=== PATIENT | female | born 1935 | race Caucasian/White ===

== ENCOUNTER 2020-04-01 10:00 | Inpatient (IN) | payer MEDICARE, SELFPAY ==
[2020-04-01] VITALS (8 sets, daily range): BP systolic 135–150; BP diastolic 57–74; PULSE 85–110; RESP 18–414; TEMP 36.4–37.1; O2SAT 91–98; BMI 29.4
--- NOTE | 2020-04-01 10:04 | ECG_ITS ---
Test Reason : UPPER BACK PAIN Blood Pressure : / mmHG Vent. Rate : 090 BPM Atrial Rate : 090 BPM P-R Int : 190 ms QRS Dur : 082 ms QT Int : 368 ms P-R-T Axes : 041 -17 -55 degrees QTc Int : 450 ms Normal sinus rhythm Marked ST abnormality, possible inferior subendocardial injury Marked ST abnormality, possible anterolateral subendocardial injury Abnormal ECG When compared with ECG of 13-JUN-2004 08:30, ST now depressed in Inferior leads ST now depressed in Lateral leads T wave inversion now evident in Lateral leads Referred By: Generic ED Physician Electronically Signed By:PAIGE PERRY MD
--- NOTE | 2020-04-01 11:01 | XR_ITS ---
EXAMINATION: XR CHEST CLINICAL INFORMATION: Chest pain COMPARISON: None TECHNIQUE: Frontal view of the chest was obtained. FINDINGS: Heart size upper limits of normal. Ill-defined patchy airspace disease changes are present most prominently in the lower lobes. The pulmonary vasculature appears unremarkable and there is no evidence of gross CHF. No pleural effusions are seen. Degenerative changes are present in the spine with scoliosis convex to the right. XR/XR chest 1V IMPRESSION: Bilateral patchy airspace disease. Unfortunately, no prior studies are available for comparison. Findings would certainly be compatible with viral pneumonia, such as Covid 19. If old films are available, these would be useful for comparison.
[2020-04-01] MEDS: Aspirin 81 MG TAB.CHEW 324 MG PO (11:17)
[2020-04-01] MEDS: 0.9 % Sodium Chloride 1,000 ML 999 ML IV (11:18)
[2020-04-01] MEDS: Nitroglycerin 0.4 MG TAB.SUBL SUBLINGUAL ×2 (11:19→12:13)
[2020-04-01 11:20] LABS: Basophils Percent Auto 0.1 % (0-2); Eosinophils Percent Auto 0.1 % (0-4); Hematocrit 32.7 % (37-47); Hemoglobin 10.5 g/dl (12.0-16.0); Imm Gran Abs Auto 0.03 X10*3/uL (0.00-0.03); Imm Gran Pct Auto 0.4 % (0.0-0.4); Lymphocytes Absolute Auto 0.9 X10*3/uL (1.2-4.9); MANUAL DIFF FLAG NO; Mean Corpuscular HGB Conc 32.1 g/dl (31.0-35.0); Mean Corpuscular Hemoglobin 34.5 pg (27.0-33.0); Mean Corpuscular Volume 107.6 fL (80-98); Mean Platelet Volume 10.7 fL (9.4-12.3); Monocytes Absolute Auto 0.6 X10*3/uL (0.1-1.2); Monocytes Percent Auto 8.2 % (2-11); Neutrophils Absolute Auto 5.2 X10*3/uL (2.0-8.3); Neutrophils Percent Auto 77.2 % (45-73); Platelet Count 180 X10*3/uL (160-400); Red Blood Count 3.04 X10*6/uL (4.20-5.50); White Blood Count 6.7 X10*3/uL (4.8-10.8)
[2020-04-01 11:26] LABS: INTERNATIONAL NORM RATIO 0.9 (0.9-1.1); Prothrombin Time 10.9 SEC (10.8-13.0)
[2020-04-01 11:29] LABS: D Dimer 438 NG/ML; Partial Thromboplastin Time 27.5 SEC (24.1-38.0)
--- NOTE | 2020-04-01 11:30 | ECG_ITS ---
Test Reason : REPEAT Blood Pressure : / mmHG Vent. Rate : 086 BPM Atrial Rate : 086 BPM P-R Int : 190 ms QRS Dur : 082 ms QT Int : 370 ms P-R-T Axes : 040 -23 235 degrees QTc Int : 442 ms Normal sinus rhythm Marked ST abnormality, possible inferior subendocardial injury Abnormal ECG When compared with ECG of 01-APR-2020 10:14, ST less depressed in Anterior leads Referred By: Jono Ramirez Electronically Signed By:PAIGE PERRY MD
--- NOTE | 2020-04-01 11:38 | ED_ITS ---
HPI - General Adult General Chief complaint: Back Pain/Injury Stated complaint: back pain Time Seen by Provider: 04/01/20 10:48 Source: patient Mode of arrival: ambulatory Limitations: no limitations History of Present Illness HPI narrative: 85-year-old female who presents the emergency department for evaluation back pain and bilateral arm pain. She states that the pain started yesterday morning while she was at rest. The pain came on gradually. She states the pain is heaviness located between her shoulder blades. She also has a numb sensation in both arms and pain in her jaw and neck associated with the b ack pain. She states that the pain was intermittent on and off throughout the day yesterday. She states the pain was as high as 10/10. She states this morning when she woke up at 0530 hours she again developed the pain in her back and both arms. The pain did radiate to her neck and jaw as well. She states the pain has been intermittent but can not characterize how long the pain lasts. She states the pain got worse and was 9 of 10 therefore she came to the emergency department for evaluation. She denied fever, chills, nausea, vomiting, lightheadedness, dizziness, diaphoresis, cough, pain or swelling in her extremities. The patient denies coronary artery disease. She does have history of hypertension hyperlipidemia. She also has rheumatoid arthritis and is treated with Remicade. She does smoke cigarettes. Related Data Home Medications Medication Instructions Recorded Confirmed Calcium 600 1 tab PO DAILY 04/01/20 04/01/20 alendronate 70 mg PO QWEEK 04/01/20 04/01/20 amlodipine 1 tab PO DAILY 04/01/20 04/01/20 celecoxib 1 cap PO BID 04/01/20 04/01/20 folic acid 800 mcg PO DAILY 04/01/20 04/01/20 methotrexate 10 mg PO QWEEK 04/01/20 04/01/20 metoprolol succinate 1 tab PO DAILY 04/01/20 04/01/20 multivitamin 1 tab PO DAILY 04/01/20 04/01/20 omeprazole 1 cap PO BID 04/01/20 04/01/20 pravastatin 1 tab PO DAILY 04/01/20 04/01/20 Allergies Allergy/AdvReac Type Severity Reaction Status Date / Time Sulfa (Sulfonamide Allergy Unknown RASH Unverified 12/23/19 16:01 Antibiotics) [SULFA(SULFONAMIDE ANTIBIOTICS)] Review of Systems Review of Systems: Yes all other systems are reviewed and are negative Constitutional: Constitutional: Reports as per HPI Eyes: Eyes: Reports as per HPI ENT: Reports as per HPI Cardiovascular: Cardiovascular: Reports as per HPI Respiratory: Respiratory: Reports as per HPI Gastrointestinal: Gastrointestinal: Reports as per HPI Genitourinary: Genitourinary: Reports as per HPI Musculoskeletal: Musculoskeletal: Reports as per HPI Integumentary/Breasts: Skin/Breast: Reports as per HPI Neurologic: Reports as per HPI and Reports Abnormal speech present Psychiatric: Psychiatric: Reports as per HPI Allergic/Immunologic: Allergic/Immunologic: Reports as per HPI FORMERLY [facility], [facility] Past Medical History Attestation statement: The following information was validated with the patient. [facility]LY [facility], [facility] Narrative: Hypertension, hyperlipidemia, GERD, rheumatoid arthritis on Remicade the patient does smoke cigarettes, she denies alcohol and drug use. She states that she is a and lives alone. Medical History (Updated 04/01/20 @ 17:42 by Jono Ramirez MD) Acid reflux Hyperlipidemia Hypertension Rheumatoid arthritis Surgical History (Updated 04/01/20 @ 17:08 by DULCE Amezquita) Status post bilateral knee replacements Social History Social History (Updated 04/01/20 @ 17:10 by DULCE Amezquita) Household Members: None Alcohol intake: never Smoking Status: Never smoker Use of substances other than those prescribed or required for medical reasons: No Advance Directives: No Advance Directives Information Provided: Yes Physical Exam Vital Signs: Vital Signs: Last Vital Signs Temp 97.8 F 04/01/20 16:19 Pulse 97 04/01/20 16:19 Resp 20 04/01/20 16:19 BP 138/57 L 04/01/20 16:19 Pulse Ox 91 L 04/01/20 16:19 Body Mass Index 29.4 Const: General: cooperative and healthy appearing Nutritional Appearance: average body habitus Orientation/consciousness: oriented to person and oriented to place Limitations: no limitations HENMT: Head: Yes normal to inspection, Yes normocephalic and Yes atraumatic Ears: external ears normal General nose exam: Normal external nose present Face and sinus: Yes normal facial exam Mouth: Normal oral and palatal mucosa present Throat: Yes posterior oropharynx normal Eyes: General: appearance normal, both eyes and all related structures Alignment and Position: alignment normal Periorbital: periorbital findings normal Eyelids: Yes eyelids normal Conjunctivae: conjunctivae normal Sclerae: sclerae normal Pupils: Equal, round and reactive pupils present Direct Ophthalmoscopy: normal light reflex Neck: Neck: Yes normal visual inspection and Yes supple Thyroid: Thyroid normal Chest: Chest palpation & inspection: normal inspection of the chest and normal palpation of entire chest wall Resp: Effort & Inspection: normal respiratory effort and able to speak in complete sentences Auscultation: clear to auscultation bilaterally, no crackles, no rales and no rhonchi Cardio: Rate: regular rate Rhythm: regular rhythm Heart sounds: S1 normal heart sound present, S2 normal heart sound present and no murmurs GI: Inspection: Yes normal to inspection Palpation (GI): Soft to palpation, nontender and no guarding Auscultation: normal bowel sounds : General: Yes no CVA tenderness Back/Spine/Pelvis: Back: no CVA tenderness Cervical Spine: normal cervical lordosis Thoracic/Lumbar Spine: thoracic and lumbar spine normal to inspection Skin: General skin exam: no rashes or lesions noted Lesions: no lesions Rashes: no rashes Trauma: no lacerations or abrasions Neuro: General: oriented to person and oriented to place Cranial nerves: Yes CN's II-XII intact bilaterally and Yes Equal, round and reactive pupils present Cognition (Neuro): normal cognition Speech: Abnormal speech present Motor exam (neuro): 5/5 motor strength present throughout Extrem: General: Yes normal to inspection Psych: Appearance: grossly normal and well kempt Mental Status: mental status grossly normal Speech and movement: Normal speech and movement present Affect: normal affect Attitude: cooperative Thought process: Normal thought process present Thought content: Normal thought content present Insight: Good insight present (Psych) Judgement: Good judgement present (Psych) Course Course Course Narrative: 85-year-old female who presents emergency department for evaluation of intermittent back pain x2 days, the pain is located between her shoulder blades with pain radiating to both arms, neck and jaw. On presentation the patient was having pain was 9/10. Her EKG which was done in the waiting room, revealed ST segment depression in leads 2, AVF, V4 through V6. Upon seeing this EKG and a request that the patient brought back to a room immediately. The patient was given 1 sublingual nitroglycerin at 11:31 a.m. with complete resolution of her pain. I did order a cardiac workup on this patient to include troponin and a D-dimer. The patient will have a repeat EKG. 1241: The patient's chest x-ray is concerning for increased interstitial infiltrates which I believe is more consistent with pulmonary edema versus pneumonia. The patient's D-dimer was elevated at 430 but is within a normal range for an age adjusted value. The patient's troponin was elevated at 24.2 given the gender specific range for women of 5-17. The patient became more hypoxic and more dyspneic. She was ordered to get BiPAP and I did discuss the patient's presentation with the covering wood planer, Dr. Ej Martinez. He recommended the patient giving the patient morphine for her dyspnea and I ordered 2 mg IV and he recommended consult cardiology. 1326: The patient was evaluated by Dr. Martinez who felt that the patient did not require BiPAP therefore it was discontinued. He wanted the patient to be treated with a DuoNeb to see if this improved her dyspnea. He recommended patient be admitted to the hospitalist service. Patient's proBNP was elevated at 1097. 1524: Patient's 3 hour troponin was elevated at 340 suggesting that the patient has myocardial injury. COVID-19 test was negative. 1616: CT angiogram of the chest revealed no aortic dissection or large pulmon sebas embolism. The patient does have a ground-glass appearance to the lungs more consistent with congestive heart failure given her negative COVID-19 screen. I will started on low-dose heparin, the patient and the patient will be admitted to the hospital service. Medical Decision Making Lab Data Result diagrams: 04/01/20 11:12 04/01/20 11:12 Labs: Lab Results 04/01/20 04/01/20 04/01/20 Range/Units 11:12 11:12 11:12 WBC 6.7 (4.8-10.8) X10*3/uL RBC 3.04 L (4.20-5.50) X10*6/uL Hgb 10.5 L (12.0-16.0) g/dl Hct 32.7 L (37-47) % MCV 107.6 H (80-98) fL MCH 34.5 H (27.0-33.0) pg MCHC 32.1 (31.0-35.0) g/dl RDW 14.0 (11.0-16.0) % Plt Count 180 (160-400) X10*3/uL MPV 10.7 (9.4-12.3) fL Immature Gran % (Auto) 0.4 (0.0-0.4) % Neut % (Auto) 77.2 H (45-73) % Lymph % (Auto) 14.0 L (20-40) % [place] % (Auto) 8.2 (2-11) % Eos % (Auto) 0.1 (0-4) % Baso % (Auto) 0.1 (0-2) % Lymph # (Auto) 0.9 L (1.2-4.9) X10*3/uL [place] # (Auto) 0.6 (0.1-1.2) X10*3/uL Eos # (Auto) 0.0 (0.0-0.4) X10*3/uL Baso # (Auto) 0.0 (0.0-0.2) X10*3/uL Abs Immat Gran (auto) 0.03 (0.00-0.03) X10*3/uL Absolute Neuts (auto) 5.2 (2.0-8.3) X10*3/uL Absolute Nucleated RBC 0.000 (0.0-0.012) X10*3/uL Nucleated RBC % (auto) 0.0 (0.0-0.2) /100WBC PT (10.8-13.0) SEC INR (0.9-1.1) APTT (24.1-38.0) SEC D-Dimer NG/ML Sodium 137 (135-145) mmol/L Potassium 4.4 (3.3-5.1) mmol/l Chloride 106 (96-108) mmol/L Carbon Dioxide 19 L (22-29) mmol/L Anion Gap 16 (12-20) BUN 26 H (9-16) mg/dL Creatinine 1.23 (0.5-1.4) mg/dL Estim Creat Clear Calc 27.4 Estimated GFR 42 Random Glucose 126 H (60-115) mg/dL Calcium 9.0 (8.4-10.2) mg/dL Total Bilirubin 0.5 (0.0-1.0) mg/dL Direct Bilirubin 0.2 (0.0-0.5) mg/dL AST 21 (5-31) U/L ALT 14 (0-31) U/L Alkaline Phosphatase 48 (39-117) U/L Troponin I High Sens (<3.5-17.0) ng/L B-Natriuretic Peptide (<100) pg/mL Total Protein 7.1 (6.5-8.0) g/dL Albumin 4.4 (3.5-5.0) g/dL Lipase 21 (8-78) U/L COVID-19 (TETO) (Negative) COVID-19 Clin Com 04/01/20 04/01/20 04/01/20 Range/Units 11:12 11:12 12:35 WBC (4.8-10.8) X10*3/uL RBC (4.20-5.50) X10*6/uL Hgb (12.0-16.0) g/dl Hct (37-47) % MCV (80-98) fL MCH (27.0-33.0) pg MCHC (31.0-35.0) g/dl RDW (11.0-16.0) % Plt Count (160-400) X10*3/uL MPV (9.4-12.3) fL Immature Gran % (Auto) (0.0-0.4) % Neut % (Auto) (45-73) % Lymph % (Auto) (20-40) % [place] % (Auto) (2-11) % Eos % (Auto) (0-4) % Baso % (Auto) (0-2) % Lymph # (Auto) (1.2-4.9) X10*3/uL [place] # (Auto) (0.1-1.2) X10*3/uL Eos # (Auto) (0.0-0.4) X10*3/uL Baso # (Auto) (0.0-0.2) X10*3/uL Abs Immat Gran (auto) (0.00-0.03) X10*3/uL Absolute Neuts (auto) (2.0-8.3) X10*3/uL Absolute Nucleated RBC (0.0-0.012) X10*3/uL Nucleated RBC % (auto) (0.0-0.2) /100WBC PT 10.9 (10.8-13.0) SEC INR 0.9 (0.9-1.1) APTT 27.5 (24.1-38.0) SEC D-Dimer 438 NG/ML Sodium (135-145) mmol/L Potassium (3.3-5.1) mmol/l Chloride (96-108) mmol/L Carbon Dioxide (22-29) mmol/L Anion Gap (12-20) BUN (9-16) mg/dL Creatinine (0.5-1.4) mg/dL Estim Creat Clear Calc Estimated GFR Random Glucose (60-115) mg/dL Calcium (8.4-10.2) mg/dL Total Bilirubin (0.0-1.0) mg/dL Direct Bilirubin (0.0-0.5) mg/dL AST (5-31) U/L ALT (0-31) U/L Alkaline Phosphatase (39-117) U/L Troponin I High Sens 24.2 H (<3.5-17.0) ng/L B-Natriuretic Peptide 1097 H (<100) pg/mL Total Protein (6.5-8.0) g/dL Albumin (3.5-5.0) g/dL Lipase (8-78) U/L COVID-19 (TETO) Negative (Negative) COVID-19 Clin Com See Note 04/01/20 Range/Units 14:25 WBC (4.8-10.8) X10*3/uL RBC (4.20-5.50) X10*6/uL Hgb (12.0-16.0) g/dl Hct (37-47) % MCV (80-98) fL MCH (27.0-33.0) pg MCHC (31.0-35.0) g/dl RDW (11.0-16.0) % Plt Count (160-400) X10*3/uL MPV (9.4-12.3) fL Immature Gran % (Auto) (0.0-0.4) % Neut % (Auto) (45-73) % Lymph % (Auto) (20-40) % [place] % (Auto) (2-11) % Eos % (Auto) (0-4) % Baso % (Auto) (0-2) % Lymph # (Auto) (1.2-4.9) X10*3/uL [place] # (Auto) (0.1-1.2) X10*3/uL Eos # (Auto) (0.0-0.4) X10*3/uL Baso # (Auto) (0.0-0.2) X10*3/uL Abs Immat Gran (auto) (0.00-0.03) X10*3/uL Absolute Neuts (auto) (2.0-8.3) X10*3/uL Absolute Nucleated RBC (0.0-0.012) X10*3/uL Nucleated RBC % (auto) (0.0-0.2) /100WBC PT (10.8-13.0) SEC INR (0.9-1.1) APTT (24.1-38.0) SEC D-Dimer NG/ML Sodium (135-145) mmol/L Potassium (3.3-5.1) mmol/l Chloride (96-108) mmol/L Carbon Dioxide (22-29) mmol/L Anion Gap (12-20) BUN (9-16) mg/dL Creatinine (0.5-1.4) mg/dL Estim Creat Clear Calc Estimated GFR Random Glucose (60-115) mg/dL Calcium (8.4-10.2) mg/dL Total Bilirubin (0.0-1.0) mg/dL Direct Bilirubin (0.0-0.5) mg/dL AST (5-31) U/L ALT (0-31) U/L Alkaline Phosphatase (39-117) U/L Troponin I High Sens 340.9 H D (<3.5-17.0) ng/L B-Natriuretic Peptide (<100) pg/mL Total Protein (6.5-8.0) g/dL Albumin (3.5-5.0) g/dL Lipase (8-78) U/L COVID-19 (TETO) (Negative) COVID-19 Clin Com ECG Data Attestation: I personally reviewed and interpreted this ECG as follows: Interpretation: Normal sinus rhythm rate of 90, normal AK, QRS and QTC intervals, ST segment depression in leads 2, AVF, V4 through V6, no old EKG for comparison. This is consistent with acute anterior ischemia Critical Care Time Critical Care Time Critical Care Time: Yes Total Critical Care Time: 55 Attestation: Critical Care: The patient was critically ill with a high probability of imminent or life threatening deterioration. I spent greater than 30 minutes of discontinuous time evaluating the patient,delivering critical care at the bedside, discussing and evaluating pertinent data with consultants (hospitalist, lobster man and wood planer). Critical care time does not include time spent performing separately billable procedures or teaching. Total time spent performing critical care was 55 minutes. Discharge Plan Discharge Clinical Impression: Myocardial injury, Congestive heart failure, Acute respiratory distress Prescriptions: No Action multivitamin Tablet 1 tab PO DAILY RF: 0 celecoxib 200 mg capsule 1 cap PO BID RF: 0 pravastatin 40 mg tablet 1 tab PO DAILY RF: 0 alendronate 70 mg Tablet 70 mg PO QWEEK RF: 0 metoprolol succinate 100 mg tablet extended release 24 hr 1 tab PO DAILY RF: 0 amlodipine 10 mg tablet 1 tab PO DAILY RF: 0 omeprazole 20 mg capsule,delayed release(DR/EC) 1 cap PO BID RF: 0 folic acid 800 mcg Tablet 800 mcg PO DAILY RF: 0 methotrexate 2.5 mg/mL Solution 10 mg PO QWEEK RF: 0 Calcium 600 1 tab PO DAILY RF: 0
[2020-04-01 11:50] LABS: Anion Gap 16 (12-20); Blood Urea Nitrogen 26 mg/dL (9-16); Carbon Dioxide 19 mmol/L (22-29); Chloride 106 mmol/L (96-108); Creatinine Clr Calc Pharmacy 27.4; Estimated Glomerular Filt Rate 42; Glucose Random 126 mg/dL (60-115); Potassium 4.4 mmol/l (3.3-5.1); Sodium 137 mmol/L (135-145)
[2020-04-01 11:53] LABS: Alanine Aminotransferase 14 U/L (0-31); Albumin Level 4.4 g/dL (3.5-5.0); Alkaline Phosphatase 48 U/L (39-117); Aspartate Amino Transferase 21 U/L (5-31); Bilirubin Direct 0.2 mg/dL (0.0-0.5); Bilirubin Total 0.5 mg/dL (0.0-1.0); Lipase 21 U/L (8-78); Total Protein 7.1 g/dL (6.5-8.0)
[2020-04-01] MEDS: Nitroglycerin 2 % Oint 1 GM Packet 1 INCH TRANSDERMA (12:13)
[2020-04-01] MEDS: Furosemide 20 MG/2 ML VIAL IVPUSH ×2 (12:14→13:10)
[2020-04-01 12:26] LABS: Troponin-I High Sensitivity 24.2 ng/L (<3.5-17.0)
[2020-04-01 13:01] LABS: COVID-19 Test Negative (Negative)
[2020-04-01 13:01] LABS: B Type Natriuretic Peptide 1097 pg/mL (<100)
[2020-04-01] MEDS: Morphine Sulfate 4 MG/ML CARTRIDGE 2 MG IVPUSH (13:10)
[2020-04-01] MEDS: Albuterol/Iprat 2.5/0.5MG 3 ML AMPUL.NEB INHALE (13:29)
--- NOTE | 2020-04-01 13:40 | P.EN_ITS ---
Event Note Date of Service: 04/01/20 Event Note: I was asked by Dr. Ramirez to look at Mrs. Yap who was put on BiPAP bec of dyspnea and hypoxemia. Briefly, the patient is an 85-year-old female with PMHx of hypertension, hyperlipidemia, and rheumatoid arthritis on Remicade.. She?s a current smoker. She has no h/o CAD. Baseline creat in her old chart was about 1.0 in 2018. She presented to the ED this morn c/o back pain and bilateral arm pain. The hx as obtained by Dr. Ramirez: ?She states that the pain started yesterday morning while she was at rest. The pain came on gradually. She states the pain is heaviness located between her shoulder blades. She also has a numb sensation in both arms and pain in her jaw and neck associated with the back pain. She states that the pain was intermittent on and off throughout the day yesterday. She states the pain was as high as 10/10. She states this morning when she woke up at 0530 hours she again developed the pain in her back and both arms. The pain did radiate to her neck and jaw as well. She states the pain has been intermittent but can not characterize how long the pain lasts. She states the pain got worse and was 9 of 10 therefore she came to the emergency department for evaluation. She denied fever, chills, nausea, vomiting, lightheadedness, dizziness, diaphoresis, cough, pain or swelling in her extremities.? First VS in the ED report HR 85, BP 139/61, RR 26, Sat 92% on NC, ? flow rate. Exam reported as ?Effort & Inspection: normal respiratory effort and able to speak in complete sentences Auscultation: clear to auscultation bilaterally, no crackles, no rales and no rhonchi?. ?EKG revealed ST segment depression in leads 2, AVF, V4 through V6.? The patient was given 1 sublingual nitroglycerin at 11:31 a.m. with complete resolution of her pain. CXR shows increased interstitial infiltrates concerning for mild pulmonary edema. The patient's D-dimer was elevated at 430 (normal for age). Troponin was 24. BNP 1097. She became more hypoxic and more dyspneic. She was put on BiPAP and I was called. I rev her chart and rec?d morphine and a cardiology consult and went to the ED and saw the patient. She was given morphine 2mg and Lasix 20mg. On my exam, she is wearing the BiPAP, she?s breathing easy, and looks entirely well. She?s talking easily in full sentences. She says that she doesn?t like the mask, feels that she?d breathe easier without it. RR about 18-20, Vt on BiPAP 10/5 was 395cc. Sat low 90?s, no JVD, good chest excursion. Auscultation shows some crackles with a low pitched exp wheeze. No M or G. No leg edema. IMPRESSION: 1. Chest pain, EKG changes, and pain resolved with NTG. Sounds like ACS. Definitely rec a cardiology consult. Would repeat trop and EKG. But the back pain in a smoker with no reason to have back pain makes me concerned about an aortic aneurysm. D/W Dr. Ramirez. 2. Hypoxemia. Agree with likely CHF. Tx w Lasix and morphine. Give more morphine if nec. Needs an echo at some point (sooner rather than later). No indication at this time for noninvasive mask ventilation. If her breathing becomes more labored and she needs support, would start with more morphine and high flow. 3. Acute or chronic kidney disease. 4. Anemia. Discussed all the above with Dr. Ramirez. Rec admission to [facility] (assuming that cardiology doesn?t think she needs an intervention). Time: 40 min ([id number])
--- NOTE | 2020-04-01 13:59 | PC.NURSE ---
UP TO BEDSIDE COMMODE VOID 500ML PT REQUIRES SUPERVISION ONLY FOR TRANSFER
--- NOTE | 2020-04-01 14:01 | CT_ITS ---
EXAMINATION: CT ANGIOGRAM OF THE CHEST WITH AND WITHOUT CONTRAST (CT PULMONARY ANGIOGRAM FOR PE) CLINICAL INFORMATION: Chest pain, back pain, elevated D-dimer. Rule out dissection. COMPARISON: No pertinent prior studies are available for comparison. TECHNIQUE: Prior to contrast administration, noncontrast localization images were obtained. Subsequently, multidetector volumetric imaging was performed from the thoracic inlet to the pubic symphysis through the chest, abdomen, and pelvis following the administration of 70 mL Omnipaque 350 intravenous contrast. No contrast reaction reported. Sagittal, coronal, and MIP oblique sagittal (through the chest only) reformatted images were obtained on the CT workstation, uploaded to PACS, and reviewed. This CT examination was performed using dose optimization techniques as appropriate, variously including the following: *Automated exposure control *Adjustment of mA and/or kV according to patient size (this includes techniques or standardized protocols for targeted exams where dose is matched to indication/reason for exam; i.e. extremities or head) *Use of iterative reconstruction technique Total exam dose-length product: 273 mGy-cm FINDINGS: QUALITY OF STUDY/CONTRAST BOLUS: The bolus is less than than optimal. There are significant limitations secondary to motion artifact. PULMONARY ARTERIES: No large central or segmental pulmonary emboli. This study is limited by the contrast bolus and respiratory motion artifact. THORACIC AORTA: No aneurysm or dissection. LUNGS AND PLEURA: Septal thickening is present with ground-glass change in the lungs with some thickening along the bronchovascular bundles. There are associated bilateral pleural effusions and bilateral lower lobe atelectasis. Findings could be related to interstitial edema or possibly infectious etiologies. MEDIASTINUM: Normal heart size. No pericardial effusion. No hilar or mediastinal lymphadenopathy. No evidence of septal bowing or right heart strain. CHEST WALL/AXILLAE: No axillary or internal mammary lymphadenopathy. OSSEOUS STRUCTURES: Marked degenerative change is present in the spine with scoliosis and mid thoracic compression fractures. VISUALIZED ABDOMEN: No significant findings in the upper abdomen. CT/CT angio chest IMPRESSION: 1. No evidence of large central or segmental pulmonary emboli. 2. No evidence of aortic dissection or aneurysm. 3. Ground-glass changes in the pulmonary parenchyma with some septal thickening and bilateral pleural effusions as described above which could be secondary to CHF with interstitial edema or infection. VTE: Negative, but limited
--- NOTE | 2020-04-01 14:04 | PC.NURSE ---
hospitalist sal here for admission assessment
[2020-04-01] MEDS: iohexoL 350 MG/ML 100 ML INFUS..BTL IV (14:54)
[2020-04-01 15:11] LABS: Troponin-I High Sensitivity 340.9 ng/L (<3.5-17.0)
--- NOTE | 2020-04-01 16:34 | PM.EVENT ---
Event Note Date of Service: 04/01/20 Event Note: Patient seen and examined independently and was present during amaral portion of E/M service. Agree with midlevel's history, physical, assessment, and plan. 85F presented with sob ACS complicate by acute chf lasix, heparin, cardio
--- NOTE | 2020-04-01 16:59 | P.HPHOSP_ITS ---
History of Present Illness Date of Service: 04/01/20 Chief Complaint: Back pain This is an 85-year-old female who presents to the emergency department today with complaints of back pain. She reports pain between her shoulder blades radiating to her arms in her jaw. This pain started last night and was present for several hours and then resolved. She began having the same pain again this morning around 530. The pain was described as a 9/10 severity. She came to the emergency department for evaluation and received dose of nitro on arrival. This initially improved her pain somewhat. Her EKG was noted to be abnormal with ST depressions in leads 2, AVF, V4 through V6. Her initial troponin was 24.2 but her repeat increased to 340.9. She became hypoxic while in the emergency department and imaging was consistent with heart failure. Her BNP was 1112. She received a dose of Lasix and morphine with good effect. Cardiology recommended starting her on heparin drip and a decision was made to admit her for further management. Review of Systems Review of Systems: Yes all other systems are reviewed and are negative Constitutional: Constitutional: Denies chills and Denies fever(s) Respiratory: Respiratory: Denies cough Gastrointestinal: Gastrointestinal: Denies abdominal pain Neurologic: Reports as per HPI and Reports Abnormal speech present [facility] Medical History (Updated 04/01/20 @ 17:11 by DULCE Amezquita) Acid reflux Hyperlipidemia Hypertension Rheumatoid arthritis Functional capacity: independent ambulation Family history: reviewed and not pertinent Surgical History (Updated 04/01/20 @ 17:08 by DULCE Amezquita) Status post bilateral knee replacements Social History (Updated 04/01/20 @ 17:10 by DULCE Amezquita) Household Members: None Alcohol intake: never Smoking Status: Never smoker Use of substances other than those prescribed or required for medical reasons: No Advance Directives: No Advance Directives Information Provided: Yes Meds Allergies Allergy/AdvReac Type Severity Reaction Status Date / Time Sulfa (Sulfonamide Allergy Unknown RASH Unverified 12/23/19 16:01 Antibiotics) [SULFA(SULFONAMIDE ANTIBIOTICS)] Home Medications Medication Instructions Recorded Confirmed Type Calcium 600 1 tab PO DAILY 04/01/20 04/01/20 History alendronate 70 mg PO QWEEK 04/01/20 04/01/20 History amlodipine 1 tab PO DAILY 04/01/20 04/01/20 History celecoxib 1 cap PO BID 04/01/20 04/01/20 History folic acid 800 mcg PO DAILY 04/01/20 04/01/20 History methotrexate 10 mg PO QWEEK 04/01/20 04/01/20 History metoprolol succinate 1 tab PO DAILY 04/01/20 04/01/20 History multivitamin 1 tab PO DAILY 04/01/20 04/01/20 History omeprazole 1 cap PO BID 04/01/20 04/01/20 History pravastatin 1 tab PO DAILY 04/01/20 04/01/20 History Physical Exam Vital Signs and Narrative: Vital Signs: Last Vital Signs Temp 97.8 F 04/01/20 16:19 Pulse 97 04/01/20 16:19 Resp 20 04/01/20 16:19 BP 138/57 L 04/01/20 16:19 Pulse Ox 91 L 04/01/20 16:19 Body Mass Index 29.4 Const: General: alert and awake Nutritional Appearance: well nourished Orientation/consciousness: patient oriented x3 HENMT: Head: Yes normocephalic and Yes atraumatic Eyes: Sclerae: sclerae normal Chest: Chest palpation & inspection: normal inspection of the chest Resp: Effort & Inspection: normal respiratory effort Auscultation: crackles Cardio: Rate: regular rate Rhythm: regular rhythm GI: Palpation (GI): Soft to palpation and nontender Skin: General skin exam: no rashes or lesions noted Neuro: General: patient oriented x3 Cranial nerves: Yes CN's II-XII intact bilaterally and Yes Bilaterally intact EOM present Speech: Abnormal speech present Extrem: General: Yes normal to inspection Results Labs CBC and Chem 7: 04/01/20 11:12 04/01/20 11:12 Labs: Laboratory Results - last 24 hr 04/01/20 04/01/20 04/01/20 11:12 11:12 11:12 MCV 107.6 H MCH 34.5 H MCHC 32.1 RDW 14.0 Plt Count 180 MPV 10.7 Immature Gran % (Auto) 0.4 Neut % (Auto) 77.2 H Lymph % (Auto) 14.0 L [place] % (Auto) 8.2 Eos % (Auto) 0.1 Baso % (Auto) 0.1 Lymph # (Auto) 0.9 L [place] # (Auto) 0.6 Eos # (Auto) 0.0 Baso # (Auto) 0.0 Abs Immat Gran (auto) 0.03 Absolute Neuts (auto) 5.2 Absolute Nucleated RBC 0.000 Nucleated RBC % (auto) 0.0 PT INR APTT D-Dimer Anion Gap 16 Estim Creat Clear Calc 27.4 Estimated GFR 42 Random Glucose 126 H Calcium 9.0 Total Bilirubin 0.5 Direct Bilirubin 0.2 AST 21 ALT 14 Alkaline Phosphatase 48 Troponin I High Sens B-Natriuretic Peptide Total Protein 7.1 Albumin 4.4 Lipase 21 COVID-19 (TETO) COVID-19 Clin Com 04/01/20 04/01/20 04/01/20 11:12 11:12 12:35 MCV MCH MCHC RDW Plt Count MPV Immature Gran % (Auto) Neut % (Auto) Lymph % (Auto) [place] % (Auto) Eos % (Auto) Baso % (Auto) Lymph # (Auto) [place] # (Auto) Eos # (Auto) Baso # (Auto) Abs Immat Gran (auto) Absolute Neuts (auto) Absolute Nucleated RBC Nucleated RBC % (auto) PT 10.9 INR 0.9 APTT 27.5 D-Dimer 438 Anion Gap Estim Creat Clear Calc Estimated GFR Random Glucose Calcium Total Bilirubin Direct Bilirubin AST ALT Alkaline Phosphatase Troponin I High Sens 24.2 H B-Natriuretic Peptide 1097 H Total Protein Albumin Lipase COVID-19 (TETO) Negative COVID-[employer] Com See Note 04/01/20 14:25 MCV MCH MCHC RDW Plt Count MPV Immature Gran % (Auto) Neut % (Auto) Lymph % (Auto) [place] % (Auto) Eos % (Auto) Baso % (Auto) Lymph # (Auto) [place] # (Auto) Eos # (Auto) Baso # (Auto) Abs Immat Gran (auto) Absolute Neuts (auto) Absolute Nucleated RBC Nucleated RBC % (auto) PT INR APTT D-Dimer Anion Gap Estim Creat Clear Calc Estimated GFR Random Glucose Calcium Total Bilirubin Direct Bilirubin AST ALT Alkaline Phosphatase Troponin I High Sens 340.9 H D B-Natriuretic Peptide Total Protein Albumin Lipase COVID-19 (TETO) COVID-19 Clin Com Imaging Radiologist's Impressions: Impressions Chest X-Ray 04/01/20 11:01 IMPRESSION: Bilateral patchy airspace disease. Unfortunately, no prior studies are available for comparison. Findings would certainly be compatible with viral pneumonia, such as Covid 19. If old films are available, these would be useful for comparison. Chest CTA 04/01/20 14:01 IMPRESSION: 1. No evidence of large central or segmental pulmonary emboli. 2. No evidence of aortic dissection or aneurysm. 3. Ground-glass changes in the pulmonary parenchyma with some septal thickening and bilateral pleural effusions as described above which could be secondary to CHF with interstitial edema or infection. VTE: Negative, but limited Assessment and Plan (1) NSTEMI (non-ST elevated myocardial infarction): Status: Acute (2) CHF (congestive heart failure): Status: Acute This is an 85-year-old female with a history of hypertension, hyperlipidemia, rheumatoid arthritis who presents to the emergency department with back pain radiating to her arms found to have NSTEMI, CHF Acute respiratory failure with hypoxia Related to CHF -continue supplemental oxygen as needed NSTEMI -IV heparin -echocardiogram -aspirin, continue beta-michael, statin -cardiology consult -repeat troponin Acute CHF No previous history of heart failure -IV Lasix -echocardiogram -cardiology consult -low-sodium diet Hypertension Continue home Norvasc, metoprolol Rheumatoid arthritis Hold methotrexate DVT prophylaxis-heparin Code status-patient wishes to be DNR/DNI This case was discussed with Dr. Morgan
[2020-04-01] MEDS: Heparin Sodium,Porcine/1/2NS 25,000 UNIT/250 ML IV.SOLN 7.66 UNIT IVCONT (17:25)
[2020-04-01] MEDS: Furosemide 40 MG/4 ML VIAL IVPUSH (17:28)
[2020-04-01] MEDS: Heparin Sodium,Porcine 5,000 UNIT/ML VIAL 3700 UNIT IVPUSH (17:28)
--- NOTE | 2020-04-01 20:05 | ECG_ITS ---
Test Reason : ELEVATE TROP Blood Pressure : / mmHG Vent. Rate : 128 BPM Atrial Rate : 108 BPM P-R Int : 000 ms QRS Dur : 072 ms QT Int : 304 ms P-R-T Axes : 000 -22 -75 degrees QTc Int : 443 ms Atrial fibrillation with rapid ventricular response with frequent atrial-paced complexes and with premature ventricular or aberrantly conducted complexes Marked ST abnormality, possible inferior subendocardial injury Abnormal ECG When compared with ECG of 01-APR-2020 11:57, Atrial fibrillation with rapid ventricular response has replaced Sinus rhythm Vent. rate has increased BY 42 BPM Referred By: Patria Doshi Electronically Signed By:PAIGE PERRY MD
[2020-04-01] MEDS: Omeprazole 20 MG CAPSULE.DR PO (21:41)
[2020-04-02 00:09] LABS: PTT Heparin Drip 80.5 SEC (53-77.9)
[2020-04-02 04:00] VITALS: BP 128/88; PULSE 108; RESP 18; TEMP 36.3; O2SAT 92
[2020-04-02] MEDS: Furosemide 40 MG/4 ML VIAL IVPUSH ×2 (04:15→10:53)
[2020-04-02 06:00] VITALS: BMI 29.2
[2020-04-02 06:34] LABS: MANUAL DIFF FLAG NO
[2020-04-02 07:02] LABS: Basophils Percent Auto 0.1 % (0-2); Hematocrit 30.9 % (37-47); Hemoglobin 9.9 g/dl (12.0-16.0); Imm Gran Abs Auto 0.03 X10*3/uL (0.00-0.03); Imm Gran Pct Auto 0.4 % (0.0-0.4); Lymphocytes Absolute Auto 0.9 X10*3/uL (1.2-4.9); Lymphocytes Percent Auto 11.8 % (20-40); Mean Corpuscular Hemoglobin 33.7 pg (27.0-33.0); Mean Corpuscular Volume 105.1 fL (80-98); Mean Platelet Volume 11.7 fL (9.4-12.3); Monocytes Absolute Auto 1.1 X10*3/uL (0.1-1.2); Monocytes Percent Auto 14.2 % (2-11); NRBC Pct Auto 0.3 /100WBC (0.0-0.2); Neutrophils Absolute Auto 5.6 X10*3/uL (2.0-8.3); Neutrophils Percent Auto 73.5 % (45-73); Platelet Count 176 X10*3/uL (160-400); Red Blood Count 2.94 X10*6/uL (4.20-5.50); Red Cell Distribution Width 14.3 % (11.0-16.0); White Blood Count 7.7 X10*3/uL (4.8-10.8)
[2020-04-02 07:10] LABS: PTT Heparin Drip 63.9 SEC (53-77.9)
[2020-04-02 07:24] LABS: B Type Natriuretic Peptide 2531 pg/mL (<100)
[2020-04-02 07:38] LABS: Anion Gap 15 (12-20); Blood Urea Nitrogen 25 mg/dL (9-16); Calcium 8.3 mg/dL (8.4-10.2); Carbon Dioxide 25 mmol/L (22-29); Chloride 103 mmol/L (96-108); Creatinine Clr Calc Pharmacy 26.2; Estimated Glomerular Filt Rate 40; Glucose Random 112 mg/dL (60-115); Potassium 4.4 mmol/l (3.3-5.1); Sodium 139 mmol/L (135-145)
--- NOTE | 2020-04-02 07:41 | PC.NURSE ---
Addendum entered by Belle Crowell RN 04/02/20 10:33: Cardio at bedside - patient c/o of SOB and right arm heaviness, O2 87% on 5.5L NC - patient placed on 100% NRB - O2 up to 97% - VO Dr Hendrix 1 nitro paste and 40mg IVP lasix administered. BP stable 114/73. Jaeger placed. Current vitals: BP 121/55, HR 74, 96% on 100% NRB, 24RR. Plan for [facility] transfer for cardiac cath. Addendum entered by Belle Crowell RN 04/02/20 09:46: Cardio contacted by hospitalist - patient started on Amio loading dose and gtt - loading dose completed and gtt currently at started rate of 1mg/min. Converted to SR w/ frequent PVCs at 908 - Dr Morgan notified. Patient resting with eyes closed in bed. Will continue to monitor. Original Note: HR up to 140's on monitor, rhythm irregular - previously SR w/ frequent PVC's - this Rn at bedside - patient has no complaints except for lower back pain. BP 115/73, O2 92% on 5.5L NC. EKG ordered and obtained reading AFIB w/ RVR, ST abnormality. Dr Morgan notified. Cardio consult pending - currently on heparin gtt - ptthd no change - next ptthd placed for 04/02 1315 per protocol. Patient repositioned for back pain and reports pain improved. Will continue to monitor.
--- NOTE | 2020-04-02 07:45 | ECG_ITS ---
Test Reason : rhythm change Blood Pressure : / mmHG Vent. Rate : 141 BPM Atrial Rate : 122 BPM P-R Int : 000 ms QRS Dur : 072 ms QT Int : 284 ms P-R-T Axes : 000 -11 -73 degrees QTc Int : 434 ms Atrial fibrillation with rapid ventricular response with premature ventricular or aberrantly conducted complexes Marked ST abnormality, possible inferior subendocardial injury Abnormal ECG When compared to the previous EKG of 01 apr 2020, no significant change noted Referred By: Cameron Morgan Electronically Signed By:DINO HICKS
[2020-04-02 07:48] VITALS: BP 115/73; PULSE 140; RESP 20; TEMP 37; O2SAT 92
[2020-04-02] MEDS: Pravastatin Sodium 40 MG TABLET PO (07:59)
[2020-04-02 08:00] VITALS: BP 115/73; PULSE 139
[2020-04-02] MEDS: Aspirin Enteric Coated 81 MG TABLET.DR PO (08:00)
[2020-04-02] MEDS: Metoprolol Succinate ER 100 MG TAB.ER.24H PO (08:00)
[2020-04-02] MEDS: Omeprazole 20 MG CAPSULE.DR PO (08:00)
[2020-04-02] MEDS: 0.9 % Sodium Chloride Flush 3 ML SYRINGE IVFLUSH (08:01)
[2020-04-02] MEDS: Amiodarone/Dextrose 150 MG/100 ML PLAST..BAG 600 MG IV (08:55)
[2020-04-02] MEDS: Amiodarone HCL 900 MG in 0.9 % Sodium Chloride 500 ML 34.53 MG IVCONT (09:05)
--- NOTE | 2020-04-02 10:37 | P.DS_ITS ---
DS: Providers Provider Date of admission: 04/01/20 16:56 Primary care physician: Chandler Rodriguez MD Consults: 04/01/20 16:56 Consult to Cardiology Routine Consulting Provider: Esteban Hendrix Reason for consultation: NSTEMI, CHF Has provider been notified: No DS: Diagnosis Discharge Diagnosis (1) NSTEMI (non-ST elevated myocardial infarction): Status: Acute (2) CHF (congestive heart failure): Status: Acute (3) Acute respiratory distress: Status: Acute (4) Congestive heart failure: Status: Acute (5) Myocardial injury: Status: Acute (6) Acute respiratory failure with hypoxia: Status: Acute DS: Medications Discharge Medications Home Medications: Home Medications Medication Instructions Recorded Confirmed Calcium 600 1 tab PO DAILY 04/01/20 04/01/20 alendronate 70 mg PO QWEEK 04/01/20 04/01/20 amlodipine 1 tab PO DAILY 04/01/20 04/01/20 celecoxib 1 cap PO BID 04/01/20 04/01/20 folic acid 800 mcg PO DAILY 04/01/20 04/01/20 methotrexate 10 mg PO QWEEK 04/01/20 04/01/20 metoprolol succinate 1 tab PO DAILY 04/01/20 04/01/20 multivitamin 1 tab PO DAILY 04/01/20 04/01/20 omeprazole 1 cap PO BID 04/01/20 04/01/20 pravastatin 1 tab PO DAILY 04/01/20 04/01/20 DS: Summary Hospital Course Hospital Course: Patient was admitted for NSTEMI complicated by acute CHF and acute hypoxic respiratory failure. She was started on IV heparin, aspirin, beta-michael. Patient then went into atrial fibrillation with rapid ventricular response. She was started on amiodarone drip and converted to sinus rhythm. Patient then went into flash pulmonary edema requiring 100% non-rebreather. Decision was made to transfer to CICU at [facility]. Time Spent with Patient Time attestation: Total time spent providing and/or coordinating discharge services: Physical Exam Vital Signs: Vital Signs: Last Vital Signs Temp 98.6 F 04/02/20 07:48 Pulse 139 H 04/02/20 08:00 Resp 20 04/02/20 07:48 BP 115/73 04/02/20 08:00 Pulse Ox 92 04/02/20 07:48 Body Mass Index 29.2 General: AO X 3, some resipratory distress - but actually says shes feeling a bit better Resp: rales CVS: S1,S2,RRR GI: soft, non tender, non distended Neuro: motor grossly intact Psych: appropriate affect DS: Data Data Completed and Pending Labs on day of discharge: 04/01/20 10:04 ECG 12 lead EKG Stat 04/01/20 10:05 EKG Documentation DIRECTED 04/01/20 11:00 Aspirin 324 mg PO ONCE ONE 04/01/20 11:01 IV insert/maintain ONCE XR chest 1V Stat 04/01/20 11:06 0.9 % Sodium Chloride [Ns] 1,000 ml IV 999 mls/hr 04/01/20 11:12 B Type Natriuretic Peptide Stat Basic Metabolic Panel Stat Complete Blood Count Auto Diff Stat D Dimer Stat Lipase Stat Liver Panel Stat Partial Thromboplastin Time Stat Prothrombin Time INR Stat Troponin-I High Sensitivity Stat 04/01/20 11:30 ECG 12 lead EKG Stat EKG Documentation DIRECTED 04/01/20 12:05 Furosemide [Lasix] 20 mg IVPUSH ONCE ONE Nitroglycerin 2 % Oint [Nitro-Bid] 1 inch TRANSDERMA ONCE ONE 04/01/20 12:31 Furosemide [Lasix] 20 mg IVPUSH ONCE ONE 04/01/20 12:32 Add Laboratory Test Stat RT BiPAP/CPAP STAT 04/01/20 12:35 COVID-19 ID NOW ([place]) Stat 04/01/20 12:45 Morphine Sulfate 2 mg IVPUSH ONCE ONE 04/01/20 13:24 Albuterol Sulfate [Ventolin] 4 puff INHALE ONCE ONE Albuterol/Iprat 2.5/0.5MG 3 ML [Duoneb] 3 ml INHALE ONCE ONE 04/01/20 14:01 CT angio chest Stat 04/01/20 14:25 Troponin-I High Sensitivity Stat 04/01/20 14:53 iohexoL 350 MG/ML [Omnipaque 350 MG/ML] 100 ml IV ONCE ONE 04/01/20 16:30 Heparin Sodium,Porcine 3,700 unit IVPUSH ONCE ONE 04/01/20 16:44 Transfer Order Routine 04/01/20 18:52 Troponin-I High Sensitivity Routine 04/01/20 19:53 IV insert/maintain Q4HR Intake and Output QSHIFTE Vital Signs Q4HR 04/01/20 20:05 ECG 12 lead EKG Stat EKG Documentation DIRECTED 04/01/20 23:44 PTT Heparin Drip Stat 04/02/20 06:20 B Type Natriuretic Peptide Routine Basic Metabolic Panel DAILY@0600 Complete Blood Count Auto Diff DAILY@0600 PTT Heparin Drip Stat 04/02/20 07:41 EKG Documentation DIRECTED 04/02/20 08:37 Amiodarone/Dextrose [Nexterone] 150 mg in 100 ml IV ONCE 04/02/20 08:46 Amiodarone HCL [Cordarone] 900 mg .ROUTE .STK-MED ONE 04/02/20 09:00 amLODIPine Besylate [Norvasc] 10 mg PO DAILY 04/02/20 10:19 Furosemide [Lasix] 40 mg .ROUTE .STK-MED ONE Nitroglycerin 2 % Oint [Nitro-Bid] 1 inch TRANSDERMA .STK-MED ONE 04/02/20 10:32 Nitroglycerin 2 % Oint [Nitro-Bid] 0.5 inch TRANSDERMA ONCE ONE Laboratory Last Values WBC 7.7 X10*3/uL (4.8-10.8) 04/02/20 06:20 RBC 2.94 X10*6/uL (4.20-5.50) L 04/02/20 06:20 Hgb 9.9 g/dl (12.0-16.0) L 04/02/20 06:20 Hct 30.9 % (37-47) L 04/02/20 06:20 MCV 105.1 fL (80-98) H 04/02/20 06:20 MCH 33.7 pg (27.0-33.0) H 04/02/20 06:20 MCHC 32.0 g/dl (31.0-35.0) 04/02/20 06:20 RDW 14.3 % (11.0-16.0) 04/02/20 06:20 Plt Count 176 X10*3/uL (160-400) 04/02/20 06:20 MPV 11.7 fL (9.4-12.3) 04/02/20 06:20 Immature Gran % (Auto) 0.4 % (0.0-0.4) 04/02/20 06:20 Neut % (Auto) 73.5 % (45-73) H 04/02/20 06:20 Lymph % (Auto) 11.8 % (20-40) L 04/02/20 06:20 [place] % (Auto) 14.2 % (2-11) H 04/02/20 06:20 Eos % (Auto) 0.0 % (0-4) 04/02/20 06:20 Baso % (Auto) 0.1 % (0-2) 04/02/20 06:20 Lymph # (Auto) 0.9 X10*3/uL (1.2-4.9) L 04/02/20 06:20 [place] # (Auto) 1.1 X10*3/uL (0.1-1.2) 04/02/20 06:20 Eos # (Auto) 0.0 X10*3/uL (0.0-0.4) 04/02/20 06:20 Baso # (Auto) 0.0 X10*3/uL (0.0-0.2) 04/02/20 06:20 Abs Immat Gran (auto) 0.03 X10*3/uL (0.00-0.03) 04/02/20 06:20 Absolute Neuts (auto) 5.6 X10*3/uL (2.0-8.3) 04/02/20 06:20 Absolute Nucleated RBC 0.020 X10*3/uL (0.0-0.012) H 04/02/20 06:20 Nucleated RBC % (auto) 0.3 /100WBC (0.0-0.2) H 04/02/20 06:20 PT 10.9 SEC (10.8-13.0) 04/01/20 11:12 INR 0.9 (0.9-1.1) 04/01/20 11:12 APTT 27.5 SEC (24.1-38.0) 04/01/20 11:12 PTT (Heparin Protocol) 63.9 SEC (53-77.9) D 04/02/20 06:20 D-Dimer 438 NG/ML 04/01/20 11:12 Sodium 139 mmol/L (135-145) 12/27/20 06:20 Potassium 4.4 mmol/l (3.3-5.1) 04/02/20 06:20 Chloride 103 mmol/L (96-108) 04/02/20 06:20 Carbon Dioxide 25 mmol/L (22-29) 04/02/20 06:20 Anion Gap 15 (12-20) 04/02/20 06:20 BUN 25 mg/dL (9-16) H 04/02/20 06:20 Creatinine 1.28 mg/dL (0.5-1.4) 04/02/20 06:20 Estim Creat Clear Calc 26.2 04/02/20 06:20 Estimated GFR 40 04/02/20 06:20 Random Glucose 112 mg/dL (60-115) 04/02/20 06:20 Calcium 8.3 mg/dL (8.4-10.2) L D 04/02/20 06:20 Total Bilirubin 0.5 mg/dL (0.0-1.0) 04/01/20 11:12 Direct Bilirubin 0.2 mg/dL (0.0-0.5) 04/01/20 11:12 AST 21 U/L (5-31) 04/01/20 11:12 ALT 14 U/L (0-31) 04/01/20 11:12 Alkaline Phosphatase 48 U/L (39-117) 04/01/20 11:12 Troponin I High Sens 2132.3 ng/L (<3.5-17.0) H D 04/01/20 18:52 B-Natriuretic Peptide 2531 pg/mL (<100) H 04/02/20 06:20 Total Protein 7.1 g/dL (6.5-8.0) 04/01/20 11:12 Albumin 4.4 g/dL (3.5-5.0) 04/01/20 11:12 Lipase 21 U/L (8-78) 04/01/20 11:12 COVID-19 (TETO) Negative (Negative) 04/01/20 12:35 COVID-19 Clin Com See Note 04/01/20 12:35 Discharge Plan Discharge Patient Disposition: Xfer Acute Care Hospital Referrals: Chandler Rodriguez MD [Primary Care Provider] - Discharge Medications: Continued multivitamin Tablet 1 tab PO DAILY RF: 0 celecoxib 200 mg capsule 1 cap PO BID RF: 0 pravastatin 40 mg tablet 1 tab PO DAILY RF: 0 alendronate 70 mg Tablet 70 mg PO QWEEK RF: 0 metoprolol succinate 100 mg tablet extended release 24 hr 1 tab PO DAILY RF: 0 amlodipine 10 mg tablet 1 tab PO DAILY RF: 0 omeprazole 20 mg capsule,delayed release(DR/EC) 1 cap PO BID RF: 0 folic acid 800 mcg Tablet 800 mcg PO DAILY RF: 0 methotrexate 2.5 mg/mL Solution 10 mg PO QWEEK RF: 0 Calcium 600 1 tab PO DAILY RF: 0 Discharge Orders: Discharge Order (Routine); Ordered 04/02/20 Ordered By: Cameron Morgan Activity on Discharge: As tolerated Visit Report Forms: Patient Portal Discharge page Care Plan Goals: revascularization Health Concerns: [place], CHF Plan of Treatment[place] [facility] [place]
[2020-04-02] MEDS: Nitroglycerin 2 % Oint 1 GM Packet 1 INCH TRANSDERMA (10:53)
[2020-04-02 11:19] VITALS: PULSE 82; RESP 16; TEMP 36.2
[2020-04-02 11:29] VITALS: BP 98/71
--- NOTE | 2020-04-02 11:41 | PM.CNCAR ---
History of Present Illness History of Present Illness Date of Service: 04/02/20 Requesting physician: Orin Navarro Consult reason: congestive heart failure Chief complaint: Nstemi, CHF Narrative: Thank you for inviting us in consult on Tameka. She is a pleasant 85-year-old woman with prior history of rheumatoid arthritis being on Remicade therapy for last 20 years. She also has history of hypertension hyperlipidemia. No prior cardiac issues. Two days prior to admission she developed bilateral arm discomfort and some interscapular discomfort. She did not seek any emergency care at that time she has symptoms resolved. Subsequently then she started yesterday having significant interscapular discomfort which she does have describes as pressure radiating to both her arms and her jaw. She came to the emergency room on a she got sublingual nitroglycerin her symptoms somewhat resolved EKG showed significant ST T wave changes. Initial troponin is 24.2 and subsequent troponin 340.9. In the emergency room she got hypoxic subsequent findings consistent with acute pulmonary edema. She was given Lasix and morphine with improvement in her symptoms. She has been doing well till this morning her symptoms were better however while I was interviewing her she started getting nauseous and then suddenly got into respiratory distress. When I examined her she noted to be in florid pulmonary edema and look pale. She is not having any bilateral arm discomfort jaw discomfort interscapular discomfort. We started on 100% non-rebreather oxygen given Lasix and nitro paste and her symptoms gradually improved. Her subsequent troponin significantly elevated 2400. She went into rapid atrial fibrillation this morning with this more significant ST T wave changes. He started on amiodarone drip and she converted to sinus rhythm prior to going into flash pulmonary edema. She had no palpitations during this episode. No new neurologic symptoms. No recent systemic symptoms. Review of Systems Constitutional: Constitutional: Denies body ache(s), Denies chills, Denies fever(s), Denies frequent falls, Denies malaise and Denies weakness Eyes: Eyes: Reports no additional eye complaints ENT: Reports system reviewed and no additional complaints, except as documented Cardiovascular: Cardiovascular: Reports chest pain at rest, Denies lightheadedness, Denies Loss of Consciousness, Reports radiating jaw, neck or arm pain, Denies palpitations and Reports dyspnea Respiratory: Respiratory: Reports cough and Reports dyspnea Gastrointestinal: Gastrointestinal: Reports no additional gastrointestinal complaints Genitourinary: Genitourinary: Reports no additional female genitourinary complaints Musculoskeletal: Musculoskeletal: Reports no additional musculoskeletal complaints Neurologic: Reports as per HPI, Reports Abnormal speech present, Denies frequent falls and Denies weakness Psychiatric: Psychiatric: Reports no additional psychiatric complaints Endocrine: Endocrine: Denies palpitations Hematologic/Lymphatic: Hematologic/Lymphatic: Reports no additional hematologic/lymphatic complaints Allergic/Immunologic: Allergic/Immunologic: Reports no additional allergic/immunologic complaints [facility] Past Medical History Medical History Acid reflux Hyperlipidemia Hypertension Rheumatoid arthritis Functional capacity: independent ambulation Family History Family history: reviewed and not pertinent Surgical History Surgical History Status post bilateral knee replacements Social History Social History Household Members: None Housing: House Do you presently have visiting nurse or other home services: No Alcohol intake: never Smoking Status: Never smoker Smoked in Last 30 Days: No Use of substances other than those prescribed or required for medical reasons: No Currently Displaying Signs/Symptoms of Drug Intoxication Withdrawal: No Have you been hit, kicked, punched, or otherwise hurt by someone within the past year? If so, by whom?: No Do you feel safe in your current relationship?: No Current Relationship Is there a partner from a previous relationship who is making you feel unsafe now?: No Are you made to feel afraid or neglected: No Advance Directives: No Advance Directives Information Provided: Yes Do you have thoughts of harming others: None Do you have a plan to hurt others: No Plan Recently lost weight without trying: No Meds Allergies Allergy/AdvReac Type Severity Reaction Status Date / Time Sulfa (Sulfonamide Allergy Unknown RASH Verified 04/01/20 21:15 Antibiotics) [SULFA(SULFONAMIDE ANTIBIOTICS)] Home Medications Medication Instructions Recorded Confirmed Type Calcium 600 1 tab PO DAILY 04/01/20 04/01/20 History alendronate 70 mg PO QWEEK 04/01/20 04/01/20 History amlodipine 1 tab PO DAILY 04/01/20 04/01/20 History celecoxib 1 cap PO BID 04/01/20 04/01/20 History folic acid 800 mcg PO DAILY 04/01/20 04/01/20 History methotrexate 10 mg PO QWEEK 04/01/20 04/01/20 History metoprolol succinate 1 tab PO DAILY 04/01/20 04/01/20 History multivitamin 1 tab PO DAILY 04/01/20 04/01/20 History omeprazole 1 cap PO BID 04/01/20 04/01/20 History pravastatin 1 tab PO DAILY 04/01/20 04/01/20 History Physical Exam Vital Signs: Vital Signs: Last Vital Signs Temp 97.1 F 04/02/20 11:19 Pulse 82 04/02/20 11:19 Resp 16 04/02/20 11:19 BP 98/71 04/02/20 11:29 Pulse Ox 92 04/02/20 07:48 Body Mass Index 29.2 Const: General: alert, awake, acute distress severe and respiratory, anxious and ill appearing Nutritional Appearance: overweight Orientation/consciousness: patient oriented x3 HENMT: Head: Yes normocephalic and Yes atraumatic Eyes: General: appearance normal, both eyes and all related structures Neck: Neck: Yes trachea midline, Yes supple and Yes JVD Chest: Chest palpation & inspection: normal inspection of the chest Resp: Effort & Inspection: Actively coughing, respiratory distress and uses accessory muscles Auscultation: rales bilateral and diffuse Cardio: Jugular venous distension: JVD Rate: regular rate Rhythm: regular rhythm Heart sounds: S1 normal heart sound present, S2 normal heart sound present and Murmur heart sound present systolic GI: Auscultation: normal bowel sounds Skin: General skin exam: no rashes or lesions noted Neuro: General: patient oriented x3 Speech: Abnormal speech present Extrem: General: Yes no clubbing, cyanosis or edema Psych: Appearance: grossly normal Affect: Anxious affect present Results Labs and Meds Result diagrams: 04/02/20 06:20 04/02/20 06:20 Lab results: Laboratory Results - last 24 hr 04/01/20 04/01/20 04/01/20 11:12 11:12 11:12 WBC RBC Hgb Hct MCV MCH MCHC RDW Plt Count MPV Immature Gran % (Auto) Neut % (Auto) Lymph % (Auto) [place] % (Auto) Eos % (Auto) Baso % (Auto) Lymph # (Auto) [place] # (Auto) Eos # (Auto) Baso # (Auto) Abs Immat Gran (auto) Absolute Neuts (auto) Absolute Nucleated RBC Nucleated RBC % (auto) PTT (Heparin Protocol) Sodium 137 Potassium 4.4 Chloride 106 Carbon Dioxide 19 L Anion Gap 16 BUN 26 H Creatinine 1.23 Estim Creat Clear Calc 27.4 Estimated GFR 42 Random Glucose 126 H Calcium 9.0 Total Bilirubin 0.5 Direct Bilirubin 0.2 AST 21 ALT 14 Alkaline Phosphatase 48 Troponin I High Sens 24.2 H B-Natriuretic Peptide 1097 H Total Protein 7.1 Albumin 4.4 Lipase 21 COVID-19 ([facility]ETO) COVID-19 [employer] 04/01/20 04/01/20 04/01/20 12:35 14:25 18:52 WBC RBC Hgb Hct MCV MCH MCHC RDW Plt Count MPV Immature Gran % (Auto) Neut % (Auto) Lymph % (Auto) [place] % (Auto) Eos % (Auto) Baso % (Auto) Lymph # (Auto) [place] # (Auto) Eos # (Auto) Baso # (Auto) Abs Immat Gran (auto) Absolute Neuts (auto) Absolute Nucleated RBC Nucleated RBC % (auto) PTT (Heparin Protocol) Sodium Potassium Chloride Carbon Dioxide Anion Gap BUN Creatinine Estim Creat Clear Calc Estimated GFR Random Glucose Calcium Total Bilirubin Direct Bilirubin AST ALT Alkaline Phosphatase Troponin I High Sens 340.9 H D 2132.3 H D B-Natriuretic Peptide Total Protein Albumin Lipase COVID-19 ([facility]ETO) Negative COVID-19 [employer] See Note 04/01/20 04/02/20 04/02/20 23:44 06:20 06:20 WBC 7.7 RBC 2.94 L Hgb 9.9 L Hct 30.9 L MCV 105.1 H MCH 33.7 H MCHC 32.0 RDW 14.3 Plt Count 176 MPV 11.7 Immature Gran % (Auto) 0.4 Neut % (Auto) 73.5 H Lymph % (Auto) 11.8 L [place] % (Auto) 14.2 H Eos % (Auto) 0.0 Baso % (Auto) 0.1 Lymph # (Auto) 0.9 L [place] # (Auto) 1.1 Eos # (Auto) 0.0 Baso # (Auto) 0.0 Abs Immat Gran (auto) 0.03 Absolute Neuts (auto) 5.6 Absolute Nucleated RBC 0.020 H Nucleated RBC % (auto) 0.3 H PTT (Heparin Protocol) 80.5 H Sodium Potassium Chloride Carbon Dioxide Anion Gap BUN Creatinine Estim Creat Clear Calc Estimated GFR Random Glucose Calcium Total Bilirubin Direct Bilirubin AST ALT Alkaline Phosphatase Troponin I High Sens B-Natriuretic Peptide 2531 H Total Protein Albumin Lipase COVID-19 ([facility]ETO) COVID-19 Clin Com 04/02/20 04/02/20 06:20 06:20 WBC RBC Hgb Hct MCV MCH MCHC RDW Plt Count MPV Immature Gran % (Auto) Neut % (Auto) Lymph % (Auto) [place] % (Auto) Eos % (Auto) Baso % (Auto) Lymph # (Auto) [place] # (Auto) Eos # (Auto) Baso # (Auto) Abs Immat Gran (auto) Absolute Neuts (auto) Absolute Nucleated RBC Nucleated RBC % (auto) PTT (Heparin Protocol) 63.9 D Sodium 139 Potassium 4.4 Chloride 103 Carbon Dioxide 25 Anion Gap 15 BUN 25 H Creatinine 1.28 Estim Creat Clear Calc 26.2 Estimated GFR 40 Random Glucose 112 Calcium 8.3 L D Total Bilirubin Direct Bilirubin AST ALT Alkaline Phosphatase Troponin I High Sens B-Natriuretic Peptide Total Protein Albumin Lipase COVID-19 ([facility]ETO) COVID-19 Clin Com Shows atrial fibrillation rapid ventricular response with diffuse ST T wave changes suggestive of myocardial ischemia with mild ST elevation AVR EKG on admission shows marked ST depression with normal sinus rhythm suggestive of subendocardial ischemia Assessment and Plan (1) Acute respiratory failure with hypoxia: Status: Acute Acute respiratory failure with hypoxia secondary to acute flash pulmonary edema. This likely most likely secondary to ischemic heart disease and obstructive coronary disease. Clinically doing better with high-flow oxygen and nitro paste. Continue anti ischemic therapy along with high-flow oxygen therapy. Lasix was given with good urinary output. Respiratory status has improved. However this requires more tertiary level care at this point time. This was discussed with the patient. We discussed the risks benefits alternatives 2nd open to transfer to [facility]. She is agreeable. Discussed case with Dr. Johnston at [facility], where accepted the patient to be admitted to CCU at [facility]. Continue IV heparin, see below. Continue IV amiodarone to maintain rhythm at this point time. Prognosis is guarded. Had a very detailed discussion with both of patient's nieces as well as the hospitalist team as well as the nursing staff about patient's management. Plan for transfer acutely. (2) NSTEMI (non-ST elevated myocardial infarction): Status: Acute Non ST elevation myocardial infarction with marked EKG changes highly suggestive of significant coronary disease possibly left main or three-vessel coronary artery disease. She will require cardiac catheterization once stabilized from heart failure perspective. This was discussed with her. We discussed in detail about risks, benefits alternatives 2nd opinion to cardiac catheterization. She mentioned she did not want to undergo open heart surgery, I said that will discuss this based on angiographic finding. She requires tertiary level care at this point time. Continue IV heparin. Continue nitro paste. Continue low-dose aspirin therapy. Continue high-intensity statin therapy. Further management based on the findings of cardiac catheterization. (3) Paroxysmal atrial fibrillation: Status: Acute New onset atrial fibrillation in elderly woman with acute pulmonary edema and ischemic heart disease, carries a poor prognosis. She responded well to amiodarone IV therapy with conversion to sinus rhythm. He should overall help her cardiac situation. Continue IV amiodarone drip for now. Continue IV heparin. Will require echocardiogram was transferred to [facility]. Greater than 1 hour of critical time was spent in managing her care speaking with the family member as well as staff as well as making arrangements to [facility].
--- NOTE | 2020-04-02 16:06 | MHC.CM.PN ---
Pt discharged prior to being seen by CM. Acute care transfer via S
== END 2020-04-02 11:43 | disposition short-term general hospital (02) | DRG 282 ==
LOC: HO.ED 17:42 → HO.IMC 19:03
PROVIDERS: Physician Assistant Medical; Admitting Provider Internal Medicine; Emergency Provider Emergency Medicine Emergency Medical Services; Visit Provider Internal Medicine
DX: I21.4 Non-ST elevation (NSTEMI) myocardial infarction (principal); K21.9 Gastro-esophageal reflux disease without esophagitis; I48.0 Paroxysmal atrial fibrillation; E78.5 Hyperlipidemia, unspecified; M06.9 Rheumatoid arthritis, unspecified; I50.9 Heart failure, unspecified; F17.210 Nicotine dependence, cigarettes, uncomplicated; Z71.6 Tobacco abuse counseling; Z96.653 Presence of artificial knee joint, bilateral; Z20.828 Contact with and (suspected) exposure to other viral communicable diseases; Z88.2 Allergy status to sulfonamides; Z79.1 Long term (current) use of non-steroidal anti-inflammatories (NSAID); Z79.899 Other long term (current) drug therapy; Z66 Do not resuscitate
CPT/HCPCS: 36415; 71045; 71275; 80048; 80076; 83690; 83880; 84484; 85025; 85379; 85610; 85730; 87635; 93005; 96361; 96374; 96375; 99285; 99291; J0282; J1940; J2270; Q9967

== ENCOUNTER 2020-07-31 12:55 | Emergency (ER) | payer MEDICARE, SELFPAY ==
--- NOTE | ~2020-07-31 | XR_ITS ---
EXAMINATION: XR CHEST CLINICAL INFORMATION: Cardiac arrest COMPARISON: 04/01/2020 TECHNIQUE: Frontal view of the chest was obtained. FINDINGS: Rotated positioning. Endotracheal tube present, with the tube extending into the right mainstem bronchus. Repositioning is recommended. Cardiac leads in part overlie the chest. Prominence of the cardiac silhouette, similar to the prior study, allowing for difference in positioning/technique. Airspace opacities diffusely in the right hemithorax. Airspace opacities to a lesser degree in the left hemithorax, more prominent in the left lower lung/retrocardiac region. Possible small bilateral pleural effusions. No pneumothorax. XR/XR chest 1V IMPRESSION: 1. Endotracheal tube extending into the right mainstem bronchus. Repositioning is recommended. 2. Airspace opacities in bilateral hemithoraces, more prominent on the right side. Suspected small bilateral pleural effusions. This critical result was discussed with DULCE Lucia at 1428 hours on 07/31/2020 and it was ascertained that the content and urgency of the report was understood at the time of direct communication.
--- NOTE | ~2020-07-31 | CT_ITS ---
EXAMINATION: CT HEAD WITHOUT CONTRAST CLINICAL INFORMATION: Altered mental status. Cardiac arrest. Rule out intracranial hemorrhage. COMPARISON: None TECHNIQUE: Contiguous axial imaging was performed from the skull base to vertex without intravenous administration of contrast. This CT examination was performed using dose optimization techniques as appropriate, variously including the following: *Automated exposure control *Adjustment of mA and/or kV according to patient size (this includes techniques or standardized protocols for targeted exams where dose is matched to indication/reason for exam; i.e. extremities or head) *Use of iterative reconstruction technique DLP: 596 mGy-cm FINDINGS: Rotated and tilted positioning of the head. There is no evidence of acute intracranial hemorrhage or edematous territorial infarction. No abnormal mass effect or midline shift is seen. Padron to white matter differentiation is well preserved. No extra-axial fluid collections are identified. Mild cerebral volume loss. Mild periventricular and deep white matter hypodensities most suggestive of chronic microangiopathy. No acute calvarial fracture. The mastoid air cells and visualized portions of the paranasal sinuses are well aerated. CT/CT head/brain wo con IMPRESSION: No CT evidence of acute intracranial pathology. Cerebral volume loss and chronic microangiopathic changes.
--- NOTE | ~2020-07-31 | CT_ITS ---
EXAMINATION: CT CERVICAL SPINE WITHOUT CONTRAST CLINICAL INFORMATION: Cardiac arrest COMPARISON: None TECHNIQUE: Axial imaging. Sagittal and coronal reconstructions. This CT examination was performed using dose optimization techniques as appropriate, variously including the following: *Automated exposure control *Adjustment of mA and/or kV according to patient size (this includes techniques or standardized protocols for targeted exams where dose is matched to indication/reason for exam; i.e. extremities or head) *Use of iterative reconstruction technique DLP: 281 mGy-cm FINDINGS: Mild leftward curvature of the cervical spine. Mild anterolisthesis of C2 on C3. There is grade 1 anterolisthesis of C3 on C4, C4 on C5. Craniocervical, atlantoaxial articulations are maintained. No acute fracture is seen. Prominent arthritic changes at the articulation of the dens and the arch of C1. Prominent cervical spondylosis. Severe C5-C6, C6-C7, C7-T1 disc degeneration. Disc degenerative changes to a lesser degree in the cervical spine otherwise. Multilevel prominent facet degeneration. There is partial osseous fusion at bilateral C2-C3, C3-C4 facet joints. Prominent diffuse ground-glass opacities in bilateral lung apices. Small right pleural effusion. Patient is intubated. Heterogeneity of the thyroid gland. CT/CT cervical spine wo con IMPRESSION: 1. Grade 1 anterolisthesis of C2 on C3, C3 on C4, C4 on C5. This could be secondary to the spondylosis. In the appropriate clinical circumstance, ligamentous injury cannot be excluded. Further evaluation MRI as clinically warranted. 2. Severe cervical spondylosis. This includes severe C5-C6, C6-C7, C7-T1 disc degeneration. 3. Prominent diffuse ground-glass opacities in bilateral lung apices. Small right pleural effusion.
--- NOTE | ~2020-07-31 | XR_ITS ---
EXAMINATION: XR CHEST CLINICAL INFORMATION: Endotracheal tube placement COMPARISON: Previous chest x-ray most recent from earlier the same day TECHNIQUE: Frontal view of the chest was obtained. FINDINGS: There is an endotracheal tube with tip [address] The cardiac silhouette is enlarged. There is a dense bilateral airspace disease similar to previous exam. There may be a small right pleural effusion. There is no pneumothorax. There are degenerative changes of the spine and scoliosis. There is distended bowel below the diaphragm, question distended stomach. XR/XR chest 1V IMPRESSION: Endotracheal tube tip [address] and should be pulled back several centimeters. Stable enlargement of the cardiac silhouette. Stable bilateral airspace disease. Question small right pleural effusion. Distended bowel below the diaphragm, question distended stomach. Findings were communicated to Dr. Aranda by telephone on 07/31/2020 2:36 PM.
[2020-07-31 12:59] VITALS: BP 135/72; PULSE 130; RESP 16; BMI 18.1
[2020-07-31 13:02] VITALS: PULSE 136; O2SAT 96
--- NOTE | 2020-07-31 13:02 | ECG_ITS ---
Test Reason : CARDIAC ARREST Blood Pressure : / mmHG Vent. Rate : 131 BPM Atrial Rate : 098 BPM P-R Int : 000 ms QRS Dur : 150 ms QT Int : 346 ms P-R-T Axes : 000 -65 036 degrees QTc Int : 510 ms Atrial fibrillation with rapid ventricular response with premature ventricular or aberrantly conducted complexes Left axis deviation Right bundle branch block Septal infarct , age undetermined Abnormal ECG When compared with ECG of 02-APR-2020 07:44, Right bundle branch block is now Present Referred By: Jennifer Aranda Electronically Signed By:PAIGE PERRY MD
--- NOTE | 2020-07-31 13:03 | ED_ITS ---
HPI - CPR General Chief Complaint: Cardiac Arrest/CPR Stated Complaint: CARDIAC ARREST Time Seen by Provider: 07/31/20 13:02 Source: family, EMS and old records reviewed Mode of arrival: EMS Limitations: altered mental status and physical limitation History of Present Illness HPI narrative: 85 yo female with hx of PAF on eliquis, CHF, NSTEMI - was supposed to have cardioversion at [facility] today but in NSR so sent home, at home was eating then became unresponsive no trauma noted, patient was started CPR by bystander, EMS notes about 30 minutes of CPR between them and family - 2 of epi, 1 shock of for vfib, IO x 2, intubated in the field, ROSC in field prior to arrival, HCP proxy called states patient is DNR/DNI on arrival they are en route from [place] complaint: collapsed during activity (while eating) Onset (ago): minute(s) (30) Timing confirmed by: family member Place: home Bystander CPR performed: Yes AED applied by bystander/medical staff credentialing coordinator: Yes Shock advised: Yes Number of shocks delivered: 1 Initial findings in the field: unresponsive, no respirations, no pulse, V TACH/VFIB and PEA ROSC in the field: Yes Associated injuries: No Known history of: arrhythmia Treatments prior to arrival: intubation, chest compressions, defibrillated shocks # (1) and epinephrine mgs # (2) Related Data Home Medications Medication Instructions Recorded Confirmed folic acid 800 mcg PO DAILY 04/01/20 07/31/20 methotrexate 10 mg PO SA@10 04/01/20 07/31/20 amiodarone 200 mg PO DAILY 07/31/20 07/31/20 apixaban [Eliquis] 1 tab PO BID 07/31/20 07/31/20 aspirin 1 tab PO DAILY 07/31/20 07/31/20 atorvastatin 1 tab PO BEDTIME 07/31/20 07/31/20 calcium carbonate [Calcium 600] 600 mg PO DAILY 07/31/20 07/31/20 furosemide 1 tab PO BID 07/31/20 07/31/20 furosemide 20 mg PO DAILY PRN 07/31/20 07/31/20 metoprolol succinate 1 tab PO DAILY 07/31/20 07/31/20 pantoprazole 1 tab PO DAILY 07/31/20 07/31/20 Allergies Allergy/AdvReac Type Severity Reaction Status Date / Time Sulfa (Sulfonamide Allergy Unknown RASH Verified 04/01/20 21:15 Antibiotics) [SULFA(SULFONAMIDE ANTIBIOTICS)] Review of Systems Review of Systems: ROS unable to be obtained due to patient being unresponsive PMFSH Past Medical History Attestation statement: The following information was validated with the patient. Medical History Acid reflux Hyperlipidemia Hypertension Paroxysmal atrial fibrillation Rheumatoid arthritis Surgical History Status post bilateral knee replacements Social History Social History Household Members: None Housing: House Alcohol intake: never Smoking Status: Never smoker Advance Directives: No Advance Directives Information Provided: Yes Physical Exam Vital Signs: Vital Signs: Last Vital Signs Pulse 112 H 07/31/20 14:56 Resp 23 H 07/31/20 14:56 BP 150/74 H 07/31/20 14:56 Pulse Ox 92 07/31/20 14:56 Body Mass Index 18.1 Appearance: Moderate acute distress, unresponsive intubated Eyes: Pupils equal, round and reactive to light. sluggish 2mm ENT: Pharynx normal. intubated Neck: Normal inspection. Neck supple. CVS: Normal heart rate and rhythm. Pulses normal. Respiratory: No respiratory distress. Breath sounds equal with BVM she is breathing over the the vent at 21 backup 16 Abdomen: Soft and nontender. Skin: Skin warm and dry. Normal skin color. Normal skin turgor. Extremities: No lower extremity edema. No calf ttp Neuro: intermittently seems to be moving extremities but no purposeful movements at this time Course Course Course Narrative: no response to verbal stimuli at this time family at bedside discussing whether or not to extubate the patient given her wishes of DNR/DNI family notes she had lesion of LAD and declined surgery did not want surgery or to be on ventilator this was likely the event ET tube pulled back another 2cm by RT suspect airspace opacities due to pulm contusions lactic acidosis due to CPR and arrest, not infection or severe sepsis family wants to make the patient GRAPHICS EDITOR - remove tube and place on morphine gtt as this was her wishes, plan for morphine gtt to be ordered, will allow family to come, oriental orthodox services wanted, GRAPHICS EDITOR 345pm family at bedside pending last rights, will extubate once family ready patient extubated at 530pm hospitalist aware signed out to Dr. Cunha MDM - Cardiac Arrest/CPR MDM Narrative Medical decision making narrative: 85 yo female with PAF on eliquis, CHF, witnes sed arrest with bystander family CPR - ROSC in field with EMS - family en route states patient is DNR/DNI at this time will obtain labs, CXR< CT head for ICH, may need rate control of her HR but will observe Lab Data Result diagrams: 07/31/20 13:56 07/31/20 13:56 Labs: Lab Results 07/31/20 07/31/20 07/31/20 Range/Units 13:05 13:56 13:56 WBC 5.0 (4.8-10.8) X10*3/uL RBC 3.31 L (4.20-5.50) X10*6/uL Hgb 10.0 L (12.0-16.0) g/dl Hct 31.0 L (37-47) % MCV 93.7 (80-98) fL MCH 30.2 (27.0-33.0) pg MCHC 32.3 (31.0-35.0) g/dl RDW 20.7 H (11.0-16.0) % Plt Count 147 L (160-400) X10*3/uL MPV 11.2 (9.4-12.3) fL Immature Gran % (Auto) Cancelled Neut % (Auto) Cancelled Lymph % (Auto) Cancelled Knott % (Auto) Cancelled Eos % (Auto) Cancelled Baso % (Auto) Cancelled Lymph # (Auto) Cancelled Knott # (Auto) Cancelled Eos # (Auto) Cancelled Baso # (Auto) Cancelled Abs Immat Gran (auto) Cancelled Absolute Neuts (auto) Cancelled Absolute Nucleated RBC 0.040 H (0.0-0.012) X10*3/uL Nucleated RBC % (auto) 0.8 H (0.0-0.2) /100WBC Neutrophils % (Manual) 95 H (45-73) % Band Neutrophils % 0 L (3-5) % Lymphocytes % (Manual) 5 L (20-40) % Abs Neuts (Manual) 4.8 (2.2-7.9) X10*3/uL Lymphocytes # (Manual) 0.3 L (0.6-4.8) X10*3/uL Nucleated RBCs 2 H (0-0) /100WBC Platelet Estimate NORMAL (NORMAL) Large Platelets PRESENT Plt Morphology Comment NOTED RBC Morphology NOTED Polychromasia 1+ (0-2) /OIF Macrocytosis 1+ (5-14) /OIF Ovalocytes 1+ (5-14) /OIF Alto Cells 1+ (0-2) /OIF Acanthocytes (Spur) 2+ (3-5) /OIF Smear Tech's Comments VERIFIED PT (10.8-13.0) SEC INR (0.9-1.1) APTT (24.1-38.0) SEC Sodium 129 L (135-145) mmol/L Potassium 2.7 L (3.3-5.1) mmol/L Chloride 89 L (96-108) mmol/L Carbon Dioxide 23 (22-29) mmol/L Anion Gap 20 (12-20) BUN 27 H (9-16) mg/dL Creatinine 1.80 H (0.5-1.4) mg/dL Estim Creat Clear Calc 16.7 Estimated GFR 27 POC Glucose 69 (60-115) mg/dL Random Glucose 329 H D (60-115) mg/dL Lactic Acid (0.5-2.0) mmol/L Calcium 8.4 (8.4-10.2) mg/dL Magnesium 2.1 (1.6-2.6) mg/dL Total Bilirubin 1.4 H (0.0-1.0) mg/dL Direct Bilirubin 0.7 H (0.0-0.5) mg/dL AST 41 H D (5-31) U/L ALT 26 (0-31) U/L Alkaline Phosphatase 93 D (39-117) U/L Troponin I High Sens (<3.5-17.0) ng/L B-Natriuretic Peptide (<100) pg/mL Total Protein 6.3 L (6.5-8.0) g/dL Albumin 3.4 L D (3.5-5.0) g/dL Lipase 63 (8-78) U/L COVID-19 (TETO) (Negative) COVID-19 Clin Com 0407/31/20 07/31/20 Range/Units 13:56 13:56 13:56 WBC (4.8-10.8) X10*3/uL RBC (4.20-5.50) X10*6/uL Hgb (12.0-16.0) g/dl Hct (37-47) % MCV (80-98) fL MCH (27.0-33.0) pg MCHC (31.0-35.0) g/dl RDW (11.0-16.0) % Plt Count (160-400) X10*3/uL MPV (9.4-12.3) fL Immature Gran % (Auto) Neut % (Auto) Lymph % (Auto) Knott % (Auto) Eos % (Auto) Baso % (Auto) Lymph # (Auto) Knott # (Auto) Eos # (Auto) Baso # (Auto) Abs Immat Gran (auto) Absolute Neuts (auto) Absolute Nucleated RBC (0.0-0.012) X10*3/uL Nucleated RBC % (auto) (0.0-0.2) /100WBC Neutrophils % (Manual) (45-73) % Band Neutrophils % (3-5) % Lymphocytes % (Manual) (20-40) % Abs Neuts (Manual) (2.2-7.9) X10*3/uL Lymphocytes # (Manual) (0.6-4.8) X10*3/uL Nucleated RBCs (0-0) /100WBC Platelet Estimate (NORMAL) Large Platelets Plt Morphology Comment RBC Morphology Polychromasia /OIF Macrocytosis /OIF Ovalocytes /OIF Alto Cells /OIF Acanthocytes (Spur) /OIF Smear Tech's Comments PT (10.8-13.0) SEC INR (0.9-1.1) APTT (24.1-38.0) SEC Sodium (135-145) mmol/L Potassium (3.3-5.1) mmol/L Chloride (96-108) mmol/L Carbon Dioxide (22-29) mmol/L Anion Gap (12-20) BUN (9-16) mg/dL Creatinine (0.5-1.4) mg/dL Estim Creat Clear Calc Estimated GFR POC Glucose (60-115) mg/dL Random Glucose (60-115) mg/dL Lactic Acid 4.5 H* (0.5-2.0) mmol/L Calcium (8.4-10.2) mg/dL Magnesium (1.6-2.6) mg/dL Total Bilirubin (0.0-1.0) mg/dL Direct Bilirubin (0.0-0.5) mg/dL AST (5-31) U/L ALT (0-31) U/L Alkaline Phosphatase (39-117) U/L Troponin I High Sens (<3.5-17.0) ng/L B-Natriuretic Peptide 2653 H (<100) pg/mL Total Protein (6.5-8.0) g/dL Albumin (3.5-5.0) g/dL Lipase (8-78) U/L COVID-19 (TETO) Negative (Negative) COVID-19 Clin Com See Note 07/31/20 07/31/20 Range/Units 13:56 13:56 WBC (4.8-10.8) X10*3/uL RBC (4.20-5.50) X10*6/uL Hgb (12.0-16.0) g/dl Hct (37-47) % MCV (80-98) fL MCH (27.0-33.0) pg MCHC (31.0-35.0) g/dl RDW (11.0-16.0) % Plt Count (160-400) X10*3/uL MPV (9.4-12.3) fL Immature Gran % (Auto) Neut % (Auto) Lymph % (Auto) Knott % (Auto) Eos % (Auto) Baso % (Auto) Lymph # (Auto) Knott # (Auto) Eos # (Auto) Baso # (Auto) Abs Immat Gran (auto) Absolute Neuts (auto) Absolute Nucleated RBC (0.0-0.012) X10*3/uL Nucleated RBC % (auto) (0.0-0.2) /100WBC Neutrophils % (Manual) (45-73) % Band Neutrophils % (3-5) % Lymphocytes % (Manual) (20-40) % Abs Neuts (Manual) (2.2-7.9) X10*3/uL Lymphocytes # (Manual) (0.6-4.8) X10*3/uL Nucleated RBCs (0-0) /100WBC Platelet Estimate (NORMAL) Large Platelets Plt Morphology Comment RBC Morphology Polychromasia /OIF Macrocytosis /OIF Ovalocytes /OIF Alto Cells /OIF Acanthocytes (Spur) /OIF Smear Tech's Comments PT 25.4 H D (10.8-13.0) SEC INR 2.1 H (0.9-1.1) APTT 29.2 (24.1-38.0) SEC Sodium (135-145) mmol/L Potassium (3.3-5.1) mmol/L Chloride (96-108) mmol/L Carbon Dioxide (22-29) mmol/L Anion Gap (12-20) BUN (9-16) mg/dL Creatinine (0.5-1.4) mg/dL Estim Creat Clear Calc Estimated GFR POC Glucose (60-115) mg/dL Random Glucose (60-115) mg/dL Lactic Acid (0.5-2.0) mmol/L Calcium (8.4-10.2) mg/dL Magnesium (1.6-2.6) mg/dL Total Bilirubin (0.0-1.0) mg/dL Direct Bilirubin (0.0-0.5) mg/dL AST (5-31) U/L ALT (0-31) U/L Alkaline Phosphatase (39-117) U/L Troponin I High Sens 116.3 H D (<3.5-17.0) ng/L B-Natriuretic Peptide (<100) pg/mL Total Protein (6.5-8.0) g/dL Albumin (3.5-5.0) g/dL Lipase (8-78) U/L COVID-19 (TETO) (Negative) COVID-19 Clin Com ECG Data Attestation: I personally reviewed and interpreted this ECG as follows: ECG interpretation date: 07/31/20 ECG interpretation time: 13:36 Interpretation: Rate: 130 Rhythm: afib with RVR Keene: left Normal P waves. Normal SUSIE. RBBB ST T wave : diffuse ST depressions no XIOMARA qTC: prolonged prior studies: changed from prior The study has been interpreted contemporaneously by me. . Critical Care Time Critical Care Time Critical Care Time: Yes Total Critical Care Time: 60 Attestation: post ROSC care, extensive family discussions extensively I attest to this time spent taking care of the patient Discharge Plan Discharge Clinical Impression: Cardiac arrest Prescriptions: No Action folic acid 800 mcg Tablet 800 mcg PO DAILY RF: 0 methotrexate 2.5 mg/mL Solution 10 mg PO SA@10 RF: 0 atorvastatin 80 mg tablet 1 tab PO BEDTIME RF: 0 amiodarone 200 mg tablet 200 mg PO DAILY RF: 0 pantoprazole 40 mg tablet,delayed release (DR/EC) 1 tab PO DAILY RF: 0 aspirin 81 mg tablet,chewable 1 tab PO DAILY RF: 0 furosemide 20 mg tablet 1 tab PO BID RF: 0 furosemide 20 mg Tablet 20 mg PO DAILY PRN (Reason: EXCESS FLUID) RF: 0 metoprolol succinate 25 mg tablet extended release 24 hr 1 tab PO DAILY RF: 0 Eliquis 2.5 mg tablet 1 tab PO BID RF: 0 calcium carbonate [Calcium 600] 600 mg calcium (1,500 mg) Tablet 600 mg PO DAILY RF: 0
[2020-07-31 13:19] LABS: Glucose, Whole Blood 69 mg/dL (60-115)
[2020-07-31 14:10] LABS: Mean Corpuscular HGB Conc 32.3 g/dl (31.0-35.0); Mean Corpuscular Hemoglobin 30.2 pg (27.0-33.0); Mean Corpuscular Volume 93.7 fL (80-98); Mean Platelet Volume 11.2 fL (9.4-12.3); NRBC Pct Auto 0.8 /100WBC (0.0-0.2); Platelet Count 147 X10*3/uL (160-400); Red Blood Count 3.31 X10*6/uL (4.20-5.50); Red Cell Distribution Width 20.7 % (11.0-16.0)
[2020-07-31 14:14] LABS: INTERNATIONAL NORM RATIO 2.1 (0.9-1.1); Prothrombin Time 25.4 SEC (10.8-13.0)
[2020-07-31 14:17] LABS: Partial Thromboplastin Time 29.2 SEC (24.1-38.0)
[2020-07-31 14:27] LABS: Lactic Acid 4.5 mmol/L (0.5-2.0)
[2020-07-31 14:30] LABS: COVID-19 Test Negative (Negative)
[2020-07-31 14:31] LABS: Alanine Aminotransferase 26 U/L (0-31); Albumin Level 3.4 g/dL (3.5-5.0); Alkaline Phosphatase 93 U/L (39-117); Anion Gap 20 (12-20); Aspartate Amino Transferase 41 U/L (5-31); Bilirubin Direct 0.7 mg/dL (0.0-0.5); Bilirubin Total 1.4 mg/dL (0.0-1.0); Blood Urea Nitrogen 27 mg/dL (9-16); Calcium 8.4 mg/dL (8.4-10.2); Carbon Dioxide 23 mmol/L (22-29); Chloride 89 mmol/L (96-108); Creatinine Clr Calc Pharmacy 16.7; Estimated Glomerular Filt Rate 27; Glucose Random 329 mg/dL (60-115); Lipase 63 U/L (8-78); Magnesium 2.1 mg/dL (1.6-2.6); Potassium 2.7 mmol/L (3.3-5.1); Sodium 129 mmol/L (135-145); Total Protein 6.3 g/dL (6.5-8.0)
[2020-07-31 14:38] LABS: B Type Natriuretic Peptide 2653 pg/mL (<100)
[2020-07-31 14:40] LABS: Band Neutrophils Percent 0 % (3-5); Lymphocytes Absolute Manual 0.3 X10*3/uL (0.6-4.8); Lymphocytes Percent Manual 5 % (20-40); Neutrophils Absolute Manual 4.8 X10*3/uL (2.2-7.9); Neutrophils Percent Manual 95 % (45-73); Nucleated Red Blood Cells 2 /100WBC (0-0); RBC Morphology NOTED
[2020-07-31 14:41] LABS: Acanthocytes 2+ (3-5) /OIF; Burr Cells 1+ (0-2) /OIF; Ovalocytes 1+ (5-14) /OIF
[2020-07-31 14:42] LABS: Large Platelet PRESENT; Macrocytosis 1+ (5-14) /OIF; Platelet Estimate NORMAL (NORMAL); Platelet Morphology Comment NOTED; Polychromasia 1+ (0-2) /OIF
[2020-07-31 14:44] LABS: SLIDE REVIEW VERIFIED; Troponin-I High Sensitivity 116.3 ng/L (<3.5-17.0)
[2020-07-31] MEDS: Potassium Chloride/H20 10 MEQ/100 ML PIGGYBACK 100 MEQ IV (14:52)
[2020-07-31 14:56] VITALS: BP 150/74; PULSE 112; RESP 23; O2SAT 92
--- NOTE | 2020-07-31 15:02 | PC.NURSE ---
pt returned from ct scan, family at bedside. pt had small amount vomit come around tube, mouth suctioned and pt cleaned.
--- NOTE | 2020-07-31 15:39 | PC.NURSE ---
family at bedside w dr butts and this rn. family discussing pt wishes and plan of care w family members. family expressing that pt would not want to live with this tube in her throat and that she would have wanted dnr . plan for pt to be placed on comfort measures.
[2020-07-31 16:05] LABS: Reflex Lactate? Lactic Acid Added
[2020-07-31 16:20] VITALS: PULSE 124; O2SAT 97
[2020-07-31] MEDS: Morphine Sulfate 4 MG/ML CARTRIDGE IVPUSH ×2 (16:27→17:38)
[2020-07-31] MEDS: ondansetron HCL 4 MG/2 ML VIAL IVPUSH (16:27)
--- NOTE | 2020-07-31 16:50 | PM.IMHP ---
History of Present Illness Date of Service: 07/31/20 Chief Complaint: Unresposiveness Review of Systems Review of Systems: Patient intubated, obtunded [facility] Medical History Acid reflux Hyperlipidemia Hypertension Paroxysmal atrial fibrillation Rheumatoid arthritis Pertinent family history: unknown cardiac history as patient is intubated Surgical History Status post bilateral knee replacements Social History Household Members: None Housing: House Alcohol intake: never Smoking Status: Never smoker Advance Directives: No Advance Directives Information Provided: Yes Meds Allergies Allergy/AdvReac Type Severity Reaction Status Date / Time Sulfa (Sulfonamide Allergy Unknown RASH Verified 04/01/20 21:15 Antibiotics) [SULFA(SULFONAMIDE ANTIBIOTICS)] Active Medications: Current Medications Generic Name Dose Route Start Last Admin Trade Name Freq PRN Reason Stop Dose Admin Morphine Sulfate 100 mg in 100 mls @ 0 mls/hr 07/31/20 15:45 IVCONT .Q0M [facility] Protocol Per Protocol Pharmacy Consult 1 each 07/31/20 13:02 Consult Rx Perform Med Rec MISCELLANE ONCE PRN Consult order Home Medications Medication Instructions Recorded Confirmed Last Taken Type folic acid 800 mcg PO DAILY 04/01/20 07/31/20 03/31/20 History methotrexate 10 mg PO SA@10 04/01/20 07/31/20 03/31/20 History amiodarone 200 mg PO DAILY 07/31/20 07/31/20 Unknown History apixaban [Eliquis] 1 tab PO BID 07/31/20 07/31/20 Unknown History aspirin 1 tab PO DAILY 07/31/20 07/31/20 Unknown History atorvastatin 1 tab PO BEDTIME 07/31/20 07/31/20 Unknown History calcium carbonate [Calcium 600] 600 mg PO DAILY 07/31/20 07/31/20 Unknown History furosemide 1 tab PO BID 07/31/20 07/31/20 Unknown History furosemide 20 mg PO DAILY PRN 07/31/20 07/31/20 Unknown History metoprolol succinate 1 tab PO DAILY 07/31/20 07/31/20 Unknown History pantoprazole 1 tab PO DAILY 07/31/20 07/31/20 Unknown History Physical Exam Vital Signs and Narrative: Vital Signs: Last Vital Signs Pulse 112 H 07/31/20 14:56 Resp 23 H 07/31/20 14:56 BP 150/74 H 07/31/20 14:56 Pulse Ox 92 07/31/20 14:56 Body Mass Index 18.1 Const: General: patient obtunded Orientation/consciousness: patient obtunded HENMT: Head: Yes normal to inspection Eyes: Pupils: Equal, round and reactive pupils present Neck: Yes normal visual inspection Chest: Other: ET tube Chest palpation & inspection: normal inspection of the chest Cardio: Rate: regular rate Neuro: General: patient obtunded Cranial nerves: Yes Equal, round and reactive pupils present Results Labs CBC and Chem 7: 07/31/20 13:56 07/31/20 13:56 Labs: Laboratory Results - last 24 hr 07/31/20 07/31/20 07/31/20 13:05 13:56 13:56 MCV 93.7 MCH 30.2 MCHC 32.3 RDW 20.7 H Plt Count 147 L MPV 11.2 Immature Gran % (Auto) Cancelled Neut % (Auto) Cancelled Lymph % (Auto) Cancelled Vernon % (Auto) Cancelled Eos % (Auto) Cancelled Baso % (Auto) Cancelled Lymph # (Auto) Cancelled Vernon # (Auto) Cancelled Eos # (Auto) Cancelled Baso # (Auto) Cancelled Abs Immat Gran (auto) Cancelled Absolute Neuts (auto) Cancelled Absolute Nucleated RBC 0.040 H Nucleated RBC % (auto) 0.8 H Neutrophils % (Manual) 95 H Band Neutrophils % 0 L Lymphocytes % (Manual) 5 L Abs Neuts (Manual) 4.8 Lymphocytes # (Manual) 0.3 L Nucleated RBCs 2 H Platelet Estimate NORMAL Large Platelets PRESENT Plt Morphology Comment NOTED RBC Morphology NOTED Polychromasia 1+ (0-2) Macrocytosis 1+ (5-14) Ovalocytes 1+ (5-14) Silvis Cells 1+ (0-2) Acanthocytes (Spur) 2+ (3-5) Smear Tech's Comments VERIFIED PT INR APTT Anion Gap 20 Estim Creat Clear Calc 16.7 Estimated GFR 27 POC Glucose 69 Random Glucose 329 H D Lactic Acid Calcium 8.4 Magnesium 2.1 Total Bilirubin 1.4 H Direct Bilirubin 0.7 H AST 41 H D ALT 26 Alkaline Phosphatase 93 D Troponin I High Sens B-Natriuretic Peptide Total Protein 6.3 L Albumin 3.4 L D Lipase 63 COVID-19 (TETO) COVID-19 Clin Com 07/31/20 07/31/20 07/31/20 13:56 13:56 13:56 MCV MCH MCHC RDW Plt Count MPV Immature Gran % (Auto) Neut % (Auto) Lymph % (Auto) Vernon % (Auto) Eos % (Auto) Baso % (Auto) Lymph # (Auto) Vernon # (Auto) Eos # (Auto) Baso # (Auto) Abs Immat Gran (auto) Absolute Neuts (auto) Absolute Nucleated RBC Nucleated RBC % (auto) Neutrophils % (Manual) Band Neutrophils % Lymphocytes % (Manual) Abs Neuts (Manual) Lymphocytes # (Manual) Nucleated RBCs Platelet Estimate Large Platelets Plt Morphology Comment RBC Morphology Polychromasia Macrocytosis Ovalocytes Glenn Cells Acanthocytes (Spur) Smear Tech's Comments PT INR APTT Anion Gap Estim Creat Clear Calc Estimated GFR POC Glucose Random Glucose Lactic Acid 4.5 H* Calcium Magnesium Total Bilirubin Direct Bilirubin AST ALT Alkaline Phosphatase Troponin I High Sens B-Natriuretic Peptide 2653 H Total Protein Albumin Lipase COVID-19 (TETO) Negative COVID-19 tibdit Com See Note 07/31/20 07/31/20 13:56 13:56 MCV MCH MCHC RDW Plt Count MPV Immature Gran % (Auto) Neut % (Auto) Lymph % (Auto) Vernon % (Auto) Eos % (Auto) Baso % (Auto) Lymph # (Auto) Vernon # (Auto) Eos # (Auto) Baso # (Auto) Abs Immat Gran (auto) Absolute Neuts (auto) Absolute Nucleated RBC Nucleated RBC % (auto) Neutrophils % (Manual) Band Neutrophils % Lymphocytes % (Manual) Abs Neuts (Manual) Lymphocytes # (Manual) Nucleated RBCs Platelet Estimate Large Platelets Plt Morphology Comment RBC Morphology Polychromasia Macrocytosis Ovalocytes Silvis Cells Acanthocytes (Spur) Smear Tech's Comments PT 25.4 H D INR 2.1 H APTT 29.2 Anion Gap Estim Creat Clear Calc Estimated GFR POC Glucose Random Glucose Lactic Acid Calcium Magnesium Total Bilirubin Direct Bilirubin AST ALT Alkaline Phosphatase Troponin I High Sens 116.3 H D B-Natriuretic Peptide Total Protein Albumin Lipase COVID-19 (TETO) COVID-19 Clin Com Imaging Radiologist's Impressions: Impressions Head CT 07/31/20 13:02 IMPRESSION: No CT evidence of acute intracranial pathology. Cerebral volume loss and chronic microangiopathic changes. Chest X-Ray 07/31/20 13:03 IMPRESSION: 1. Endotracheal tube extending into the right mainstem bronchus. Repositioning is recommended. 2. Airspace opacities in bilateral hemithoraces, more prominent on the right side. Suspected small bilateral pleural effusions. This critical result was discussed with DULCE Lucia at 1428 hours on 07/31/2020 and it was ascertained that the content and urgency of the report was understood at the time of direct communication. Cervical Spine CT 07/31/20 13:51 IMPRESSION: 1. Grade 1 anterolisthesis of C2 on C3, C3 on C4, C4 on C5. This could be secondary to the spondylosis. In the appropriate clinical circumstance, ligamentous injury cannot be excluded. Further evaluation MRI as clinically warranted. 2. Severe cervical spondylosis. This includes severe C5-C6, C6-C7, C7-T1 disc degeneration. 3. Prominent diffuse ground-glass opacities in bilateral lung apices. Small right pleural effusion. Chest X-Ray 07/31/20 14:30 IMPRESSION: Endotracheal tube tip [address] and should be pulled back several centimeters. Stable enlargement of the cardiac silhouette. Stable bilateral airspace disease. Question small right pleural effusion. Distended bowel below the diaphragm, question distended stomach. Findings were communicated to Dr. Aranda by telephone on 07/31/2020 2:36 PM. Assessment and Plan (1) Syncope and collapse: Status: Acute 85-year-old woman admitted after having an episode syncope collapse at home. The episode was sudden and initially CPR was performed while at home and continued with EMS providers. Patient was subsequently intubated. patient's family report that she is a DNR. After discussion with the family it was decided that she would be comfort measures only this point as far prognosis is quite poor. Syncope and collapse. Possibly a cardiac event as patient has a history of coronary artery disease with severe LAD disease. She collapsed at home suddenly. Family wishes patient to be comfort measures only at this time. -
[2020-07-31] MEDS: Morphine Sulfate 2 MG/ML CARTRIDGE IM (17:38)
[2020-07-31] MEDS: Morphine Sulfate/NS 100 MG/100 ML PLAST..BAG IVCONT (17:38)
--- NOTE | 2020-07-31 17:39 | PC.NURSE ---
dr butts and resp tx at bedside for extubation, pt to be started on analgesic infusion for comfort. pt extubated w/o issue. pt family members gathered at bedside. all questions and concerns answered by dr butts and this rn. wctm for pt families needs.
--- NOTE | 2020-07-31 18:10 | PC.NURSE ---
dr monroe at bedside to pronounce pt. all drips turned off.
--- NOTE | 2020-07-31 18:27 | PC.NURSE ---
Addendum entered by Jose Robbins 07/31/20 18:46: time of conversation w spike was at 18:27, not 16:27 Original Note: this rn speaking nahum schrader at [facility] at 16:27, [facility] declining pt for organ donation att.
--- NOTE | 2020-07-31 18:27 | PC.NURSE ---
family member notifying this rn that they would like to use [facility] for services.
--- NOTE | 2020-08-02 15:38 | PC.NURSE ---
WASTED 100MG OF MORPHINE FROM [employer] CH[employer] ABUSE THERAPY, PT PRIOR TO START OF INFUSION. WASTED WITH SOLEDAD CLEARY RN
== END 2020-07-31 12:57 | disposition expired ==
PROVIDERS: Emergency Provider Emergency Medicine
DX: I46.9 Cardiac arrest, cause unspecified (principal); Z20.822 Contact with and (suspected) exposure to COVID-19
CPT/HCPCS: 36415; 70450; 71045; 72125; 80048; 80076; 82947; 83605; 83690; 83735; 83880; 84484; 85007; 85027; 85610; 85730; 87040; 87635; 93005; 94002; 94003; 96361; 96365; 96372; 96375; 99284; 99291; J2270; J2405